=== PATIENT | male | born 1995 | race Caucasian/White ===

== ENCOUNTER 2021-01-05 06:18 | Day surgery (SDC) | payer BC ==
[~2021-01-05] VITALS: Ht 190.5 cm; Wt 86.2 kg
[~2021-01-05 06:18] MED LIST: LIDOCAINE 1% MDV 20ML VIAL SQ PRN
--- OUTSIDE RECORDS SUMMARY | 2021-01-05 06:25 | CCD ---
Author Author [facility] Organization [facility] Address Unknown Phone Unavailable Care Team Providers Care Marketing Operations Analyst Name Role Phone Vivian Smith MD Unavailable Unavailable Luis, Vivian Heaton MD Unavailable Unavailable Vivian Smith MD Unavailable Unavailable Luis, Vivian Heaton MD Unavailable Unavailable Vivian Smith MD Unavailable Unavailable Luis, Vivian Heaton MD Unavailable Unavailable Luis, Vivian Heaton MD Unavailable Unavailable Luis, Vivian Heaton MD Unavailable Unavailable Luis, Vivian Heaton MD Unavailable Unavailable Luis, Vivian Heaton MD Unavailable Unavailable Vivian Smith MD Unavailable Unavailable Luis, Vivian Heaton MD Unavailable Unavailable Luis, Vivian Heaton MD Unavailable Unavailable Vivian Smith MD Unavailable Unavailable Vivian Smith MD Unavailable Unavailable Vivian Smith MD Unavailable Unavailable NOSTROM, HAILEE ANIMAL DAYCARE PROVIDER Unavailable Unavailable NOSTROM, HAILEE ANIMAL DAYCARE PROVIDER Unavailable Unavailable NOSTROM, HAILEE ANIMAL DAYCARE PROVIDER Unavailable Unavailable NOSTROM, HAILEE ANIMAL DAYCARE PROVIDER Unavailable Unavailable NOSTROM, HAILEE ANIMAL DAYCARE PROVIDER Unavailable Unavailable NOSTROM, HAILEE ANIMAL DAYCARE PROVIDER Unavailable Unavailable NOSTROM, HAILEE ANIMAL DAYCARE PROVIDER Unavailable Unavailable NOSTROM, HAILEE ANIMAL DAYCARE PROVIDER Unavailable Unavailable NOSTROM, HAILEE ANIMAL DAYCARE PROVIDER Unavailable Unavailable NOSTROM, HAILEE ANIMAL DAYCARE PROVIDER Unavailable Unavailable NOSTROM, HAILEE ANIMAL DAYCARE PROVIDER Unavailable Unavailable NOSTROM, HAILEE ANIMAL DAYCARE PROVIDER Unavailable Unavailable NOSTROM, HAILEE ANIMAL DAYCARE PROVIDER Unavailable Unavailable HINS, BRIAN PA Unavailable Unavailable HINS, BRIAN PA Unavailable Unavailable HINS, BRIAN PA Unavailable Unavailable HINS, BRIAN PA Unavailable Unavailable HINS, BRIAN PA Unavailable Unavailable HINS, BRIAN PA Unavailable Unavailable HINS, BRIAN PA Unavailable Unavailable Gokey, Nupur DIRECTOR OF DIRECT MARKETING Unavailable Unavailable Gokey, Nupur DIRECTOR OF DIRECT MARKETING Unavailable Unavailable Gokey, Nupur DIRECTOR OF DIRECT MARKETING Unavailable Unavailable Gokey, Nupur DIRECTOR OF DIRECT MARKETING Unavailable Unavailable Gokey, Nupur DIRECTOR OF DIRECT MARKETING Unavailable Unavailable Gokey, Nupur DIRECTOR OF DIRECT MARKETING Unavailable Unavailable Gokey, Nupur DIRECTOR OF DIRECT MARKETING Unavailable Unavailable Gokey, Nupur DIRECTOR OF DIRECT MARKETING Unavailable Unavailable Gokey, Nupur DIRECTOR OF DIRECT MARKETING Unavailable Unavailable Gokey, Nupur DIRECTOR OF DIRECT MARKETING Unavailable Unavailable Gokey, Nupur DIRECTOR OF DIRECT MARKETING Unavailable Unavailable Gokey, Nupur DIRECTOR OF DIRECT MARKETING Unavailable Unavailable Gokey, Nupur DIRECTOR OF DIRECT MARKETING Unavailable Unavailable Gokey, Nupur DIRECTOR OF DIRECT MARKETING Unavailable Unavailable Gokey, Nupur DIRECTOR OF DIRECT MARKETING Unavailable Unavailable Gokey, Nupur DIRECTOR OF DIRECT MARKETING Unavailable Unavailable Gokey, Nupur DIRECTOR OF DIRECT MARKETING Unavailable Unavailable Gokey, Nupur DIRECTOR OF DIRECT MARKETING Unavailable Unavailable Gokey, Nupur DIRECTOR OF DIRECT MARKETING Unavailable Unavailable Amy Duron MD Unavailable Unavailable Amy Duron MD Unavailable Unavailable Dennis Stratton LMSW Unavailable Unavailable BROUGHAL, C BERNADETTE PA Unavailable Unavailable BROUGHAL, C BERNADETTE PA Unavailable Unavailable BROUGHAL, C BERNADETTE PA Unavailable Unavailable BROUGHAL, C BERNADETTE PA Unavailable Unavailable BROUGHAL, C BERNADETTE PA Unavailable Unavailable BROUGHAL, C BERNADETTE PA Unavailable Unavailable CATHY WATT MD Unavailable Unavailable CATHY WATT MD Unavailable Unavailable CATHY WATT MD Unavailable Unavailable CATHY WATT MD Unavailable Unavailable CATHY WATT MD Unavailable Unavailable CATHY WATT MD Unavailable Unavailable CATHY WATT MD Unavailable Unavailable Taya, Paulo DO Unavailable Unavailable [place], Paulo DO Unavailable Unavailable [place], Paulo DO Unavailable Unavailable Taya, Paulo DO Unavailable Unavailable Vivian Smith MD Unavailable Unavailable Nostrom R Hailee MEAT TEAM LEAD Unavailable Unavailable Zafar, C Vivian RPA-C Unavailable Unavailable Zafar, C Vivian RPA-C Unavailable Unavailable Zafar, C Vivian RPA-C Unavailable Unavailable Zafar, C Vivian RPA-C Unavailable Unavailable Zafar, C Vivian RPA-C Unavailable Unavailable Zafar, C Vivian RPA-C Unavailable Unavailable Zafar, C Vivian RPA-C Unavailable Unavailable Zafar, C Vivian RPA-C Unavailable Unavailable Zafar, C Vivian RPA-C Unavailable Unavailable Zafar, C Vivian RPA-C Unavailable Unavailable Zafar, C Vivian RPA-C Unavailable Unavailable Zafar, C Viivan RPA-C Unavailable Unavailable Zafar, C Vivian RPA-C Unavailable Unavailable Zafar, C Vivian RPA-C Unavailable Unavailable Zafar, C Vivian RPA-C Unavailable Unavailable Zafar, C Vivian RPA-C Unavailable Unavailable Zafar, C Vivian RPA-C Unavailable Unavailable Zafar, C Vivian RPA-C Unavailable Unavailable Zafar, C Vivian RPA-C Unavailable Unavailable Zafar, C Vivian RPA-C Unavailable Unavailable Zafar, C Vivian RPA-C Unavailable Unavailable Zafar, C Vivian RPA-C Unavailable Unavailable Zafar, C Vivian RPA-C Unavailable Unavailable Zafar, C Vivian RPA-C Unavailable Unavailable Re-disclosure Warning The records that you are about to access may contain information from federally-assisted alcohol or drug abuse programs. If such information is present, then the following federally mandated warning applies: This information has been disclosed to you from records protected by federal confidentiality rules (42 CFR part 2). The federal rules prohibit you from making any further disclosure of this information unless further disclosure is expressly permitted by the written consent of the person to whom it pertains or as otherwise permitted by 42 CFR part 2. A general authorization for the release of medical or other information is NOT sufficient for this purpose. The Federal rules restrict any use of the information to criminally investigate or prosecute any alcohol or drug abuse patient.The records that you are about to access may contain highly sensitive health information, the redisclosure of which is protected by Article 27-F of the [facility] Public Health law. If you continue you may have access to information: Regarding HIV / AIDS; Provided by facilities licensed or operated by the [facility] Office of Mental Health; or Provided by the [facility] Office for People With Developmental Disabilities. If such information is present, then the following [facility] mandated warning applies: This information has been disclosed to you from confidential records which are protected by state law. State law prohibits you from making any further disclosure of this information without the specific written consent of the person to whom it pertains, or as otherwise permitted by law. Any unauthorized further disclosure in violation of state law may result in a fine or retirement sentence or both. A general authorization for the release of medical or other information is NOT sufficient authorization for further disc losure. Encounters Encounter Providers Location Date Indications Data Source(s ) Outpatient Attender: Sudarshan Smith MDAttender: Sudarshan Smith MD CPSCAORT-LABLAW 01/01/2021 12:25:00 PM EST - 01/01/2021 12:26:00 PM [facility] N44.00 [facility] N44.00 Patient discharged. Outpatient Attender: BERNADETTE BENITEZ CPSCAORT-LABCOVEJN 0 12/31/2020 09:42:00 AM EST - 12/31/2020 09:43:00 AM EST [facility] Patient discharged. Outpatient Attender: BRAIN BOLIVARCAORT-CPSLAUCC 05/2021 05:23:00 PM EST - 12/21/2020 05:24:00 PM EST [facility] Patient discharged. [place] [address] [facility] [address] 12/04/2020 12:00:00 AM EST eCW1 ([facility]) Outpatient [address] [facility] [address] 11/27/2020 12:00:00 AM EST eCW1 ([facility]) Outpatient Attender: Nupur AUGUSTINE CPSCAORT-IMAPD 2019 12:53:00 PM EST - 10/15/2020 12:54:00 PM EST N50.89-TESTICULAR MASS & SWELLING [facility] N50.89-TESTICULAR MASS & SWELLING Patient discharged. Outpatient Attender: BRIAN BENITEZ CPSCAORT-CPSLAUCC 09/14 09:01:00 AM EST - 09/27/2020 09:02:00 AM EST [facility] Patient discharged. Outpatient Attender: TOMAS Stratton CPSCAORT-CHEPDREH 01:00:00 PM EDT - 09/04/2020 01:01:00 PM EDT [facility] PSD Patient discharged. Outpatient Attender: TOMAS Stratton CPSCAORT-CHEPDREH 06/2020 01:00:00 PM EDT - 08/21/2020 01:01:00 PM EDT [facility] PSD Patient discharged. Preadmit Attender: Vivian BYNUM CPSCAORT-CHEPDREH 08/14/2020 02:00:00 PM EDT [facility] MAR Outpatient Attender: TOMAS Stratton CPSCAORT-CHEPDREH 01:00:00 PM EDT - 08/07/2020 01:01:00 PM EDT [facility] PSD Patient discharged. Outpatient Attender: TOMAS Stratton CPSCAORT-CHEPDREH 10:00:00 AM EDT - 07/30/2020 10:01:00 AM EDT [facility] PSD Patient discharged. Outpatient Attender: TOMAS Stratton [facility] 08/2020 10:39:00 AM EDT - 07/24/2020 10:40:00 AM EDT [facility] PSD Patient discharged. Emergency Attender: Paulo Bain DO [facility] 020 04:37:00 AM EDT - 06/26/2020 07:15:00 AM EDT CHEST PAIN,SOB,FEVER [facility] CHEST PAIN,SOB,FEVER Patient discharged. Emergency Attender: Kristie Duron MDAttender: CATHY Paez [facility] 06/24/2020 08:07:00 PM EDT - 06/24/2020 11:30:00 PM EDT FEVER, SORE THROAT, HEADACHE, VOMITING, [facility] FEVER, SORE THROAT, HEADACHE, VOMITING, Patient discharged. Emergency Attender: Hailee Wilson RN PAttender: HAILEE WILSON NPAttender: Paulo Bain DO [facility] 06/22/2020 12:05:00 PM EDT - 06/22/2020 01:16:00 PM EDT FEVER, SORE THROAT [facility] FEVER, SORE THROAT Patient discharged. Medications Medication Brand Name Start Date Product Form Dose Route Admi nistrative Instructions Pharmacy Instructions Status Indications Reaction Description Data Source(s) 300 mg 09/27/2020 12:00:00 AM EST capsule 15 TAKE ONE CAPSULE BY MOUTH THREE TIMES A DAY FOR 5 DAYS TAKE ONE CAPSULE BY MOUTH THREE TIMES A DAY FOR 5 DAYS SOLD: 09/27/2020 [facility] 20 mg 09/27/2020 12:00:00 AM EST tablet 10 TAKE ONE TABLET BY MOUTH TWICE A DAY FOR 5 DAYS TAKE ONE TABLET BY MOUTH TWICE A DAY FOR 5 DAYS SOLD: 2019 [facility] doxycycline hyclate 100 MG Oral Tablet DOXYCYCLINE HYCLATE 0 06/25/2020 12:00:00 AM EDT tablet 28 TAKE ONE TABLET BY MOUTH TRACE RY 12 HOURS FOR 14 DAYS TAKE ONE TABLET BY MOUTH EVERY 12 HOURS FOR 14 DAYS SOLD: 06/25/2020 [facility] Insurance Providers Payer name Policy type / Coverage type Policy ID Covered libertarian ID Covered libertarian's relationship to cabezas Policy Cabezas Plan Information [employer] CARTERCA CATRACHON PPO 302/307 [id number] SELF PAY night time babysitter employed [employer] [id number] night time babysitter employed [id number] [employer] [facility] [employer] [id number] night time babysitter employed [id number] [employer] [facility] [id number] night time babysitter employed [id number] [facility] [employer] [id number] Problems, Conditions, and Diagnoses Code Display Name Description Problem Type Effective Dates Data Source(s) B37.9 Candidiasis, unspecified CANDIDIASIS, UNSPECIFIED Diag nosis 12/21/2020 05:23:00 PM [facility] N50.3 Cyst of epididymis CYST OF EPIDIDYMIS Diagnosis 12/2019 12:53:00 PM [facility] M54.5 Low back pain LOW BACK PAIN Diagnosis 09/27/2020 09:01:00 AM [facility] Z91.030 Bee allergy status BEE ALLERGY STATUS Diagnosis 04:37:00 AM [facility] Z79.899 Other group home (current) drug therapy O THER SQL DATA ARCHITECT (CURRENT) DRUG THERAPY Diagnosis 06/26/2020 04:37:00 AM [facility] F17.210 Nicotine dependence, cigarettes, uncompl icated NICOTINE DEPENDENCE, CIGARETTES, UNCOMPLICATED Diagnosis 06/26/2020 04:37:00 AM [facility] J18.8 Other pneumonia, unspecified organism OT HER PNEUMONIA, UNSPECIFIED ORGANISM Diagnosis 06/26/2020 04:37:00 AM [facility] A69.20 Lyme disease, unspecified LYME DISEASE, UNSPECIFIED Di agnosis 06/24/2020 08:07:00 PM [facility] R50.9 Fever, unspecified FEVER, UNSPECIFIED Diagnosis 09/2020 08:07:00 PM [facility] J02.9 Acute pharyngitis, unspecified ACUTE PHARYNGITIS, UNSP ECIFIED Diagnosis 06/22/2020 12:05:00 PM [facility] Surgeries/Procedures Procedure Description Date Indications Data Source(s) Hospital outpatient clinic visit for assessment and ma nagement of a patient Hospital Outpatient Clinic Visit 12/21/2020 12:00:00 AM [facility] OFFICE OUTPATIENT VISIT 10 MINUTES OFFICE/OUTPATIENT VISIT E ST 12/21/2020 12:00:00 AM [facility] ULTRASOUND SCROTUM & CONTENTS US EXAM SCROTUM 10/15/2020 12:00:00 A M [facility] PRESSURIZED/NONPRESSURIZED INHALATION TREATMENT AIRWAY INHAL ATION TREATMENT 06/26/2020 12:00:00 AM [facility] CT THORAX W/CONTRAST MATERIAL CT THORAX W/DYE 06/26/2020 12:00:00 A M [facility] Low osmolar contrast material, 300-399 mg/ml iodine co ncentration, per ml Locm 300-399mg/ml iodine,1ml Long 06/26/2020 12:00:00 AM [facility] [address] X-RAY EXAM CHEST 1 VIEW 06/26/2020 12:00:00 AM [facility] ECG ROUTINE ECG W/LEAST 12 LDS TRCG ONLY W/O I&R ELECTROCARD IOGRAM TRACING 06/26/2020 12:00:00 AM [facility] IADNA MYCOPLSM PNEUMONIAE AMPLIFIED PROBE TQ M.PNEUMON DNA A MP PROBE 06/26/2020 12:00:00 AM [facility] IADNA CHLAMYDIA PNEUMONIAE AMPLIFIED PROBE TQ CHYLMD PNEUM D NA AMP PROBE 06/26/2020 12:00:00 AM [facility] IADNA NOS AMPLIFIED PROBE TQ EACH ORGANISM DETECT AGENT NOS DNA AMP 06/26/2020 12:00:00 AM [facility] [address]34 RESP VIRUS 12-25 TARGETS 06/26/2020 12:00:00 AM [facility] IAADIADOO NOT OTHERWISE SPECIFIED AGENT NOS ASSAY W/OPTIC 12:00:00 AM [facility] IAADI LEGIONELLA PNEUMOPHILA LEGION PNEUMOPHILIA AG IF 06/26 12:00:00 AM [facility] CULTURE BACTERIAL BLOOD AEROBIC W/ID ISOLATES BLOOD CULTURE FOR BACTERIA 06/26/2020 12:00:00 AM [facility] PROCALCITONIN (PCT) PROCALCITONIN (PCT) 06/26/2020 12:00:00 AM [facility] THROMBOPLASTIN TIME PARTIAL PLASMA/WHOLE BLOOD THROMBOPLASTI N TIME PARTIAL 06/26/2020 12:00:00 AM [facility] PROTHROMBIN TIME PROTHROMBIN TIME 06/26/2020 12:00:00 AM [facility] BLOOD COUNT SMEAR MCRSCP W/MNL DIFRNTL WBC COUNT BL SMEAR W/ DIFF WBC COUNT 06/26/2020 12:00:00 AM [facility] BLOOD COUNT COMPLETE AUTOMATED COMPLETE CBC AUTOMATED 2019 12:00:00 AM [facility] LACTATE DEHYDROGENASE LDH LACTATE (LD) (LDH) ENZYME 06/26/2020 1 2:00:00 AM [facility] FERRITIN ASSAY OF FERRITIN 06/26/2020 12:00:00 AM [facility] LACTATE ASSAY OF LACTIC ACID 06/26/2020 12:00:00 AM [facility] TROPONIN QUANTITATIVE ASSAY OF TROPONIN QUANT 06/26/2020 12:00:00 A M [facility] C-REACTIVE PROTEIN C-REACTIVE PROTEIN 06/26/2020 12:00:00 AM [facility] LIPASE ASSAY OF LIPASE 06/26/2020 12:00:00 AM [facility] COMPREHENSIVE METABOLIC PANEL COMPREHEN METABOLIC PANEL 06/14 12:00:00 AM [facility] FIBRIN DGRADJ PRODUCTS D-DIMER QUANTITATIVE FIBRIN DEGRADATI ON QUANT 06/26/2020 12:00:00 AM [facility] Non-covered item or service NON-COVERED ITEM OR SERVICE 06/14 12:00:00 AM [facility] Injection, ketorolac tromethamine, per 15 mg 0 12:00:00 AM [facility] COLLECTION VENOUS BLOOD VENIPUNCTURE ROUTINE VENIPUNCTURE 12:00:00 AM [facility] THER PROPH/DX NJX IV PUSH SINGLE/1ST SBST/DRUG THER/PROPH/DI AG INJ IV PUSH 06/26/2020 12:00:00 AM [facility] EMERGENCY DEPT VISIT HIGH SEVERITY&THREAT FUNCJ EMERGENCY DE PT VISIT 06/26/2020 12:00:00 AM [facility] ANTIBODY BORRELIA BURGDORFERI CONFIRMATORY TST LYME DISEASE ANTIBODY 06/24/2020 12:00:00 AM EDT [facility] ANTIBODY EHRLICHIA EHRLICHIA ANTIBODY 06/24/2020 12:00:00 AM EDT [facility] ANTIBODY PROTOZOA JORDAN PROTOZOA ANTIBODY NOS 06/24[facility] BORRELIA BURGDORFERI LYME DISEASE LYME DISEASE ANTI BODY 06/24/2020 [facility]ET[facility]TIBODIES SCREEN HETEROPHILE ANTIBODY SCREEN [facility] INFUSION HYDRATION EACH ADDITIONAL HOUR HYDRATE IV INFUSI ON ADD-ON 06/24/2020 [facility] HIGH/URGENT SEVERITY EMERGENCY DE PT VISIT 06/24/2020 12:00:00 AM [facility] U0003 SARS-CoV-2 detection by nucleic acid 06/22/2020 12:00: 00 AM [facility] IAAD EIA STREPTOCOCCUS GROUP A STREP A AG IA 06/22/2020 [facility] MODERATE SEVERITY EMERGENCY DEPT VISIT 06/22/2020 12:00:00 AM [facility] Results ID Date Data Source [id number] 01/03/2021 09:08:00 AM [facility] Name Value Range Interpretation Code Description Data Enma rce(s) Supporting Document(s) Urine Culture [facility] ospital ID Date Data Source [id number] 01/01/2021 05:37:00 PM [facility] Name Value Range Interpretation Code Description Data Enma rce(s) Supporting Document(s) White Blood Count 4.8-10.8 Normal (applies to non-numeri c results) [facility] Red Blood Count 4.35-6.08 Normal (applies to non-numeric results) [facility] Hemoglobin 13.0-17.5 Normal (applies to non-numeric resul ts) [facility] Hematocrit 37.7-51.0 Normal (applies to non-numeric resul ts) [facility] Mean Corpuscular Volume 80-94 Normal (applies to non- numeric results) [facility] Mean Corpuscular Hemoglobin 27.0-33.0 Normal (appli es to non-numeric results) [facility] Mean Corpuscular HGB Conc 32.0-36.0 Normal (applies to no n-numeric results) [facility] Red Cell Distribution Width 11.5-14.5 Normal (appli es to non-numeric results) [facility] Platelet Count 190 X10 3/uL 130-450 Normal (applies to non-numeric results) [facility] Mean Platelet Volume 9.6-13.1 Normal (applies to non-num alex results) [facility] ID Date Data Source [id number] 01/01/2021 04:37:00 PM EST [facility] Name Value Range Interpretation Code Description Data Enma rce(s) Supporting Document(s) Sodium 139 mmol/L 137-145 Normal (applies to non-numeric resul ts) [facility] Potassium 3.5-5.1 Normal (applies to non-numeric resul ts) [facility] Chloride 105 mmol/L 98-112 Normal (applies to non-numeric resul ts) [facility] Carbon Dioxide CO2 22.0-33.0 Normal (applies to non-numer ic results) [facility] Anion Gap 4.0-11.0 Normal (applies to non-numeric resul ts) [facility] BUN 10 mg/dL 9-20 Normal (applies to non-numeric resul ts) [facility] Creatinine 0.80-1.50 Normal (applies to non-numeric resul ts) [facility] GFR >60 Normal (applies to non-numeric results) [facility] Result based on MDRD formula. Glucose Level 82 mg/dL 74-99 Normal (applies to non-numeric re sults) [facility] The reference range is only applicable w hen fasting. Calcium-Uncorrected 8.4-10.2 Normal (applies to non-nume eloise results) [facility] Corrected Calcium 8.4-10.2 Normal (applies to non-numeri c results) [facility] ID Date Data Source [id number] 12/31/2020 08:00:00 AM EST [facility] Name Value Range Interpretation Code Description Data Enma rce(s) Supporting Document(s) Respiratory specimen severe acute respir atory syndrome coronavirus 2 (SARS-CoV-2) RNA Negative (qualifier value) [facility] This lab was ordered by [facility] Lon lockett and reported by [facility]. ID Date Data Source [id number] 01/01/2021 07:52:00 AM [facility] THIS IS A [facility] REPORTABLE COMMUNICABLE DISEASE. Testing was performed using the [employer] COVID-19 MDx Assay. This test has been authorized by FDA under an (Emergency Use Authorization) EUA for use by authorized laboratories for individuals who are suspected of COVID-19 by their healthcare provider. This test is only authorized for the duration of the declaration that circumstances exist justifying the authorization of emergency use of in vitro diagnostic tests for detection and/or diagnosis of SARS-CoV-2. Methodology: Endpoint RT-PCR. Fact sheets for this EUA assay can be found at the following links: Providers: https://www.fda.gov/media/300270/download Patients : https://www.fda.gov/media/746518/download THIS IS A [facility] REPORTABLE COMMUNICABLE DISEASE Negative results do not preclude SARS-CoV-2 infection and should not be used as the sole basis for patient management decisions. Negative results must be combined with clinical observations,patient history, and epidemiological information. Name Value Range Interpretation Code Description Data Enma rce(s) Supporting Document(s) ID Date Data Source [id number] 10/16/2020 06:58:00 AM [facility] Name: RICHARD HARVEY Edward : 1995 Age/Sex: 25M Ordering Provider: DAVIDE Devries Med Rec #: [id number] Reg Status: [facility] REF Room #: Date of Service: 10/15/20 Report Number: [id number] cc:DAVIDE Devries Send Report To: [id number] US/US Scrotum Ultrasound Reason for exam: TESTICULAR MASS, TESTICULAR SWELLING FINDINGS: Right testicle measures 4.4 x 2.0 x 3.2 cm. Left testicle measures 4.3 x 1.8 x 3.0 cm. Right epididymis measures 1.1 x 0.8 x 1.4 cm. Left epididymis measures 1.2 x 1.2 x 1.6 cm. There is a 6 mm cyst in the right epididymis and a 1 cm in the left epididymis. No evidence of a varicocele is identified. No evidence of torsion is noted. IMPRESSION: Epididymal cyst. Examination is otherwise unremarkable. REPORT DICTATED BY THOM ALVARADO, REVIEWED AND SIGNED BY DR. CHAU. REPORT SIGNATURE ON LAUREN E Reported By: Thom Chau MD <Electronically signed by Vielka Chau MD> 10/16/20 0921 Dictation Date/Time: 10/15/20 1425 Transcribed Date/Time: 10/16/20 0658 Transition Lead: TEJ Name Value Range Interpretation Code Description Data Enma rce(s) Supporting Document(s) ID Date Data Source [id number] 06/24/2020 08:07:00 PM EDT [facility] Name: RICHARD HARVEY [facility] Rec #: [id number] : 1995 Age/Sex: 24M Date of Service: 06/24/20 PHYSICIAN CHART Physician Documentation [facility] Name: Richard Harvey Age: 24 yrs Sex: Male : 1995 Arrival Date: 06/24/2020 Time: 20:07 Bed 11 Private MD: Mica Ayala I ([place]) ED Physician Kristie Duron HPI: 06/24 20:51 This 24 yrs old Male presents to ER via Walk-In jtv with complaints of Fever, Sore Throat, Headache, Vomiting. 20:51 Richard is a 24-year-old male, who works on a farm, who jtv comes in on day 5 of fever, myalgias, sore throat, intermittent posterior headache, and intermittent vomiting. He was seen several days ago and at that time had a negative COVID test. He has had no known COVID contacts. He has had no exposures on the farm that he knows about. He has 2 dogs, they are well, and no other pets. He has had multiple tics in the past, but none recently that he recalls. All of his symptoms started on day 1 with mostly a sore throat, but his fevers have persisted, and seem to be worse in the evening and at night. He does have night sweats. No cough. He denies any significant abdominal pain, but at times has left upper quadrant pain. He can tolerate p.o., but then several hours later will have some vomiting. He is had looser stools than normal, but no diarrhea, and no blood in his stool. He denies any urinary complaints. He is extremely tired. . He had a negative rapid strep test a few days ago.. Historical: - Allergies: Bees; - Home Meds: 1. None - PMHx: Lyme Dx; PNEUMONIA; - PSHx: knee bo rgery; - Med Reconciliation:: Green Alert: The patient's med list is complete to the best of the nurse's/provider's knowledge. Medications reviewed, completed by nurse verbally from patient/family. - Immunization history: Flu vaccine is not up to date. - Advance directive: There is no existing advanced directive. Information offered. - Family History:: mother is healthy, Father is healthy. - Hospitalizations: : Patient was only seen in the emergency department, as above. - Social History: Smoking status (Tobacco): Patient states is a heavy tobacco smoker (>10 cigarettes a day). Preferred Language: Qatari. - The history of the events were obtained from: the patient. significant other. ROS: 20:53 Constitutional: See HPI. ENT: See HPI. ENT: Negative for jtv difficulty handling secretions, ear pain. Neck: Negative for stiffness, swelling. Respiratory: Negative for shortness of breath, See HPI. Abdomen/GI: See HPI. Skin: Negative for pallor, rash. Neuro: See HPI. All other systems are negative. Exam: 20:53 Head/Face: Normocephalic, atraumatic. jtv 20:53 Constitutional: The patient appears to have no acute distress, appears afebrile, appears alert, appears to be awake, is not diaphoretic, does not appear to be toxic, well hydrated, appears well nourished. 20:53 ENT: TM's: are normal, Mouth: is normal, Posterior pharynx: is normal, no erythema, no exudate. 20:53 Neck: External neck: is normal, ROM/movement: is normal, is supple, no range of motions limitations, no meningismus, no nuchal rigidity, Lymph nodes: lymphadenopathy is appreciated, posterior cervical nodes, single node on the right. 20:53 Cardiovascular: Rate: normal, Rhythm: regular, Pulses: Pulses are 2+ in right radial artery and right dorsalis pedis artery. Edema: is not appreciated. 20:53 Respiratory: 20:53 Respiratory: the patient does not display signs of respiratory distress, Respirations: normal, no retractions, no tachypnea, unable to auscultate at this time due to PAPR use. 20:53 Abdomen/GI: Inspection: abdomen appears normal, Bowel sounds: normal, Palpation: abdomen is soft and non-tender, involuntary guarding, is not appreciated, rebound tenderness, is not appreciated. 20:53 Musculoskeletal/extremity: no joint swellings. 20:53 Skin: Appearance: Color: normal in color, Temperature: warm, no rash present. 20:53 Neuro: Orientation: is normal, Mentation: is normal, Memory: is normal, Motor: is normal, Gait: is steady. 20:53 Psych: Behavior/mood is pleasant, cooperative, Affect is calm. Vital Signs: 20:12 BP 123 / 80; Pulse 100; Resp 20; Temp 99.8(TE); Pulse Ox rc5 95% on R/A; Weight 78.47 kg (R); 20:13 Temp 102.9(O); rc5 21:53 BP 118 / 78; Pulse 82; Resp 18; Temp 98.4(TE); Pulse Ox 99% jb7 ; 23:33 BP 123 / 79; Pulse 88; Resp 16; Pulse Ox 99% ; jb7 Procedures: 20:50 Peripheral line: by aseptic technique a peripheral line was jtv placed in the right antecubital vein. MDM: 20:48 Patient medically screened. jtv 21:43 Data reviewed: vital signs, nurses notes, lab test jtv result(s). ED course: Biofire is negative, and had another negative test in the last few days so will remove him from airborne precautions. Lyme pending, tick panel is a sendout. LFTs and platelets are normal and monospot is negative. He is well-appearing at this time. . 23:19 ED course: Richard is a 24-year-old male, with day 5 of jtv fever, so re throat, intermittent headaches and intermittent vomiting. He was seen here several days ago and had a negative cover test and negative rapid strep. Since then, he has been able to tolerate p.o. at home, but then has intermittent vomiting throughout the day. He does get some relief of his fever with using Tylenol and/or ibuprofen. He reported headache, but no neck stiffness, and on exam, he is extremely well-appearing with no meningismus signs. He has no focal findings, abdomen is soft and benign, no rashes, throat was unremarkable, and he has no pulmonary symptoms. His O2 sat has been 99% on room air. Here, he has no leukocytosis, his CRP is elevated at approximately 100, pro- [place] is negative, LFTs are normal and platelets are normal. I did send a tickborne panel, but this will take several days to result. In the meantime, we will send him home with supportive care. His Monospot was also negative. I did do a repeat COVID test which was negative. I discussed his return precautions with him, and that we will call him for any positive serology on his tickborne panel. He understands these return precautions and all questions answered.. 23:22 ED course: Lyme IgM has come back presumptive positive. jtv Reflex Western blot to follow. Will start on doxycycline.. 06/24 20:24 Order name: Respiratory Panel w/COVID-19; Complete Time: EDMS 21:48 06/24 21:48 Interpretation: Within normal limits: RP Int Control jtv Passed; Adenovirus Not Detected; Coronavirus 229 Not Detected; CoronavirusHKU1 Not Detected; BiouadgtuuyAY54 Not Detected; ZcscarvenonGV58 Not Detected; SARS-CoV-2 Not Detected; HumanMetapneumo Not Detected; Rhino/Entero Not Detected; Influenza A Not Detected; Influenza B Not Detected; Parainfl Virus1 Not Detected; Parainfl Virus2 Not Detected; Parainfl Virus3 Not Detected; Parainfl Virus4 Not Detected; RSV Not Detected; B Parapertussis Not Detected; B Pertussis Not Detected; C Pneumoniae Not Detected; M Pneumoniae Not Detected. 06/24 20:48 Order name: COMMET; Complete Time: 21:40 [facility] 06/24 21:40 Interpretation: NA 139; K 3.8; CL 106; CO2 30.0; GAP 3.0; jtv BUN 13; CREAT 0.95; Glom Filtration > 90; GLU 115; CA 8.8; Corrected CA 9.3; T Bili 0.2; SGOT(AST) 28; SGPT(ALT) 37; ALK PHOS 83; TP 7.8; ALB 3.4. 06/24 20:48 Order name: C-Reactive Protein,Wide Range; Complete Time: t 21:40 06/24 21:40 Interpretation: Abnormal: CRP-wr 103.00. [facility] 06/24 20:48 Order name: Blood Culture - Venous [facility] 06/24 20:49 Order name: Monospot; Complete Time: 23:23 [facility] 06/24 21:40 Interpretation: Within normal limits: Monotest Negative. [facility] 06/24 20:49 Order name: Tick Disease Ab Panel (ref) [facility] 06/24 20:49 Order name: Lyme IgG/IgM Ab profile; Complete Time: 23:22 [facility] 06/24 23:22 Interpretation: Abnormal: Lyme IgM Ab Presumptive Positive. [facility] 06/24 21:20 Order name: Procalcitonin; Complete Time: 22:37 [facility] 06/24 22:37 Interpretation: Within normal limits: Procalcitonin < 0.05. [facility] 06/24 21:54 Order name: CBC with Manual Differential EDMS 06/24 23:20 Order name: Lyme Disease Ab,Immuno,Ser Pnl EDMS 06/24 20:50 Order name: Saline Lock; Complete Time: 20:50 jtv Dispensed Medications: 20:49 Drug: Ondansetron (PF) 4 mg [ondansetron HCl (PF) 4 mg/2 mL jtv injection solution (2 mL)] Route: IVP; Infused Over: 2 mins; Site: right antecubital; 22:01 Follow up: Response: Nausea is decreased; No adverse jb7 reaction 20:50 Drug: NS 0.9% 1000 ml [sodium chloride 0.9 % intravenous jb7 solution] Route: IV; Rate: 999 mL/hr; Site: right antecubital; 22:01 Follow up: IV Status: Completed infusion; IV Intake: 1000ml jb7 23:33 Drug: Doxycycline 100 mg [doxycycline hyclate 100 mg jb7 capsule (1 caps)] Route: PO; 23:33 Follow up: Response: Medication administered at discharge. jb7 Disposition S ummary: 06/24/20 23:22 Discharge Ordered Location: Home/Self Care jtv Condition: Good jtv Diagnosis - Fever jtv - Lyme Disease jtv Followup: jtv - With: Mica Ayala PA ([place]) - When: 2 - 3 days - Reason: Recheck today's complaints, Continuance of care Followup: jtv - With: Emergency Department - When: As needed - Reason: fever above 104, neck stiffness, vomiting and can't keep anything down, rash, any other concerns. Discharge Instructions: - Discharge Summary Sheet jtv - Lyme Disease jtv Forms: - Work release form jtv - Medication Reconciliation jtv Prescriptions: - Doxycycline Hyclate 100 mg Oral Tablet - take 1 tablet by ORAL route every 12 hours for 14 jtv days; 28 tablet; Refills: 0, Product Selection Permitted Signatures: Dispatcher MedHo EDWV Kristie Duron MD MD jtv Ivana Diallo RN RN jb7 Bettie Tineo RN RN rc5 Corrections: (The following items were deleted from the chart) 20:17 20:16 PMHx: HIV test offered - Refused ([id number]); 5 rc5 21:55 20:50 CBC WITH AUTO DIFFERENTIAL+HEME.LAB.CAN ordered. EDMS EDMS 21:55 21:20 CBC WITH AUTO DIFFERENTIAL+HEME.LAB.CAN reviewed. [facility] EDMS 21:55 21:20 WBC 9.2; HGB 15.1; HCT 44.3; PLT 191. jt EDMS Name Value Range Interpretation Code Description Data Enma rce(s) Supporting Document(s) ID Date Data Source [id number] 06/24/2020 08:07:00 PM EDT [facility] Name: RICHARD HARVEY [facility] Rec #: [id number] : 1995 Age/Sex: 24M Date of Service: 06/24/20 NURSE CHART Nurse's Notes [facility] Name: Richard Harvey Age: 24 yrs Sex: Male : 1995 Arrival Date: 06/24/2020 Time: 20:07 Bed 11 Private MD: Mica Ayala I ([place]) Diagnosis: Fever;Lyme Disease Presentation: 06/24 20:11 Method Of Arrival: Walk- In [facility] 20:13 Transition of care: patient was not received from another [facility] setting of care. Presenting complaint: Patient states - he has had fever, body aches, headache, vomiting and sore throat since Tuesday and was seen in ER and was tested for strep and covid and both tests were negative. He is not feeling any better. Have you travelled in the last 30 days? No. Have you had contact with an individual with a confirmed diagnosis of Ebola or COVID-19? No. 20:13 Acuity: Urgent - 3 rc5 Triage Assessment: 20:15 SEPSIS SCREEN: A Confirmed or Suspected Infection is rc5 Unknown, their temperature is <96.8 or >100.9, their heart rate is >90, their RR is not >20, it is unknown if their WBC is <4 or >12, the patient does not have new or unexplained altered mental status. Two or more SIRS or Sepsis criteria is present, provider notified: Kristie Duron MD. Suicide Screening: Have you had thoughts of harming yourself or others? No. The patient appears to have some mild discomfort, The patient is cooperative, The patient reports that he/she has been having chills, for more than 3 days, feeling like he/she has had a fever, for more than 3 days, feeling ill, for more than 3 days. The patient complains of pain in head. The patient states the pain began 3days ago. The quality of the pain is described as aching, The pain is described as continuous. EENT: The patient reports pain when swallowing. Historical: - Allergies: Bees; - Home Meds: 1. None - PMHx: Lyme Dx; PNEUMONIA; - PSHx: knee surgery; - Med Reconciliation:: Green Alert: The patient's med list is com plete to the best of the nurse's/provider's knowledge. Medications reviewed, completed by nurse verbally from patient/family. - Immunization history: Flu vaccine is not up to date. - Advance directive: There is no existing advanced directive. Information offered. - Family History:: mother is healthy, Father is healthy. - Hospitalizations: : Patient was only seen in the emergency department, as above. - Social History: Smoking status (Tobacco): Patient states is a heavy tobacco smoker (>10 cigarettes a day). Preferred Language: Qatari. - The history of the events were obtained from: the patient. si gnificant other. Screenin:17 AUDIT 1. How often do you have a drink containing alcohol? rc5 Never (0 points). Drug Abuse Screening Test: 1 . Have you used drugs other than those required for medical reasons? No (0 points), screen is complete, no risk. Abuse screen: Denies threats or abuse. Denies injuries from another. Nutritional screening: No deficits noted. Patient has no identifiable fall risk (Salazar Scale: 0 points). Assessment: 21:52 The patient appears to have no apparent distress, jb7 comfortable, The patient is behaving appropriately according to age, cooperative. Neuro: Level of Consciousness is awake, alert, Patient is oriented to person, place and time. Respiratory: Airway is patent. Respiratory effort is even, unlabored. Vital Signs: 20:12 BP 123 / 80; Pulse 100; Resp 20; Temp 99.8(TE); Pulse Ox rc5 95% on R/A; Weight 78.47 kg (R); 20:13 Temp 102.9(O); rc5 21:53 BP 118 / 78; Pulse 82; Resp 18; Temp 98.4(TE); Pulse Ox 99% jb7 ; 23:33 BP 123 / 79; Pulse 88; Resp 16; Pulse Ox 99% ; jb7 ED Course: 20:08 Patient arrived in ED. jst 20:11 Mica Ayala PA ([place]) is Private Physician. rc5 20:15 Triage completed. rc5 20:16 Arm band placed on Patient has correct armband on for rc5 positive identification. 20:19 Kristie Duron MD is Attending Physician. jtv 20:20 Ivana Diallo, RN is Primary Nurse. jtv 20:31 A swab for the respiratory panel was collected by Bettie Tineo RN. 20:50 Inserted peripheral IV: 20 gauge in right antecubital area jb7 Inserted by Kristie Duron MD. 20:51 Labs drawn by ED staff. was sent per order to lab. jb7 21:05 First set of blood cultures drawn Second set of blood jb7 cultures drawn by Lab staff. 21:52 Second set of blood cultures drawn by oh. jb7 23:21 Mica Ayala PA ([place]) is Referral Physician. jtv 23:33 Radiology: None performed. jb7 23:33 No procedures ordered. Discontinued IV bleeding controlled, jb7 pressure dressing applied, No redness/swelling at site. Administered Medications: 20:49 Drug: Ondansetron (PF) 4 mg [ondansetron HCl (PF) 4 mg/2 mL jtv injection solution (2 mL)] Route: IVP; Infused Over: 2 mins; Site: right antecubital; 22:01 Follow up: Response: Nausea is decreased; No adverse jb7 reaction 20:50 Drug: NS 0.9% 1000 ml [sodium chloride 0.9 % intravenous jb7 solution] Route: IV; Rate: 999 mL/hr; Site: right antecubital; 22:01 Follow up: IV Status: Completed infusion; IV Intake: 1000ml jb7 23:33 Drug: Doxycycline 100 mg [doxycycline hyclate 100 mg jb7 capsule (1 caps)] Route: PO; 23:33 Follow up: Response: Medication administered at discharge. jb7 Intake: 22:01 IV: 1000ml; Total: 1000ml. jb7 Outcome: 23:22 Discharge ordered by MD. santana 23:33 Patient verbalized understanding of disposition jb7 instructions. Patient has no functional deficits. Patient functions independently, Patient awake and alert. Oriented to person, place and time. 23:33 Patient discharged to home ambulatory. 23:33 Condition: good Condition: stable 23:33 Discharge instructions given to patient, Patient was instructed on discharge instructions, follow up and referral plans, medication usage, safety practices, The patient demonstrated understanding of instructions, medications, Prescriptions given X 1. 23:33 Vitals are Complete in accordance with Emergency Department Policy. 23:35 Patient left the ED. jb7 06/25 09:14 24 hour call back completed with no concerns vocalized. dk2 Addendum: 06/28/2020 08:15 Lab Result Follow-Up: IGM +, Called Pt no answer, mail box tp1 full Lab result reported by: Lab Notified Jose Ramon Mukherjee MD Result was reported at 08:16. 12:45 Lab Result Follow-Up: Pt contacted informed of + IGM, tp1 Informed that he should continue Doxycycline per . Pt felling better. Signatures: Octavio Plummer, RN RN tp1 Kristie Duron MD MD jtv Bond, Jarrett, RN RN jb7 Tatiana Garcia RN RN dk2 Bettie Tineo RN RN rc5 Shruti Garduno Corrections: (The following items were deleted from the chart) 06/24 20:17 20:16 PM Hx: HIV test offered - Refused ([id number]); rc5 rc5 Name Value Range Interpretation Code Description Data Enma rce(s) Supporting Document(s) ID Date Data Source [id number] 06/27/2020 09:31:00 AM EDT [facility] Name Value Range Interpretation Code Description Data Enma rce(s) Supporting Document(s) Respiratory specimen severe acute respir atory syndrome coronavirus 2 (SARS-CoV-2) RNA [facility] This lab was ordered by [facility] and reported by [facility]. ID Date Data Source [id number] 06/26/2020 04:37:00 AM EDT [facility] Name: RICHARD HARVEY [facility] Rec #: [id number] : 1995 Age/Sex: 24M Date of Service: 06/26/20 DISPOSITION SUMMARY Discharge Summary [facility] Name:Richard Harvey Emergency Department Age:24 yrs Sex:Male :1995 Arrival:06/26/2020 04:37 Departure Date06/26/2020 Departure Time07:14 Private MD:Mica Ayala PA ([place]) Outcome: Discharge Location: Home/Self Care Condition: Good Chief Complaint: Chest Pain, Shortness Of Breath, Fever Diagnosis: Other pneumonia, unspecified organism Prescriptions: Follow up: Mica Ayala PA ([place]) Custom Notes: Rest, drink plenty of fluids. Continue to take doxycycline. Continue to try Tylenol or ibuprofen for fever. You can use 2 puffs of the albuterol inhaler every 4 hours as needed for cough or wheezing. Return for worsening pain, trouble breathing, any additional concerns. Please be sure to follow-up with your regular provider for repeat evaluation. Attending Physician: Paulo Bain DO Private MD: Jamie (Gerry)Mica PA Mid Level Provider: Followup Physician: Jamie Mccall)Mica PA Orders: Cbc With Auto Differential, Comprehensive Metabolic Prof., D-Dimer, Lipase, Partial Thromboplastin Time, Prothrombin Time, Troponin I, CRP - Wide Range, Ferritin, LDH, Legionella Urine Antigen Screen, Procalcitonin, S.Pneumo Antigen Screen - Urine, Sputum Culture Profile and Gram Stain, CXR Portable (Chest Pain), Emergency Room EKG Order - Use EKG Work-Up /Quick Select, Cardiology EKG Interpretation - Choose Reason for Test, Iv Saline Lock, Place Patient On Monitor, Collect Sputum Sample for Culture, Lactic Acid, Blood Culture - Venous, Respiratory Panel w/COVID-19, Ventolin, ketorolac, Aspirin, Dexamethasone, CT Chest for PE with contrast (choose symptom), NS 0.9%, CBC with Manual Differential, Collect Urine - Clean Catch, Collect nasal swab Discharge Instruction: Discharge Summary Sheet, How to Use a Metered Dose Inhaler, Community-Acquired Pneumonia, Adult, Medication Reconciliation Name Value Range Interpretation Code Description Data Enma rce(s) Supporting Document(s) ID Date Data Source [id number] 06/26/2020 04:37:00 AM EDT [facility] Name: RICHARD HARVEY [facility] Rec #: [id number] : 1995 Age/Sex: 24M Date of Service: 06/26/20 PHYSICIAN CHART Physician Documentation [facility] Name: Richard Harvey Age: 24 yrs Sex: Male : 1995 Arrival Date: 06/26/2020 Time: 04:37 Bed 10 Private MD: Jamie Mccall)Mica I ED Physician Paulo Bain HPI: 06/26 05:31 This 24 yrs old Male presents to ER via Walk-In rc3 with complaints of Chest Pain, Shortness Of Breath, Fever. 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 He states he still had a fever there is been no headache he woke at 4 AM with chest pain and shortness of breath he is been coughing a little bit. He still had a fever he took some Tylenol and came straight to the emergency department further evaluation. No recent trauma, travel, immobilization. No lower extremity pain or swelling. No rash. No history of near syncope or syncope. He states the pain is worse when he takes a deep breath or moves.. Historical: - Allergies: Bees; - Home Meds: 1. doxycycline hyclate 100 mg Oral cap 1 cap every 12 hours 2. acetaminophen 500 mg Oral cap 2 caps every 6 hours (Last dose: 06/26/2020 04:30) - PMHx: Lyme Dx; PNEUMONIA; - PSHx: knee surgery; - Med Reconciliation:: Green Alert: The patient's med list is complete to the best of the nurse's/provider's knowledge. Medications reviewed, verbally from patient/family. - Immunization history: All immunizations are up to date. - Advance directive: There is no existing advanced directive. Information offered. - Family History:: mother is healthy, Father is healthy. - Social History: Smoking status (Tobacco): Patient states is a light tobacco smoker (<10 cigarettes a day). Preferred Language: Qatari. - The history of the events were obtained from: the patient. ROS: 05:32 Constitutional: Positive for body aches, fever, chills, rc3 fatigue, Negative for chronic illness. Head Negative for Pain. ENT: Negative for difficulty handling secretions, difficulty swallowing, ear pain, hoarseness, nasal discharge, sore throat. Eyes: Negative for acute changes. Neck: Negative for pain with move ment, pain at rest, stiffness. Cardiovascular: Positive for chest pain, Chest wall pain Negative for palpitations, edema, orthopnea, paroxysmal nocturnal dyspnea. Respiratory: Positive for cough, with no reported sputum, shortness of breath, dyspnea on exertion, wheezing. Abdomen/GI: Negative for abdominal pain, nausea, vomiting, diarrhea. 05:33 Back: Negative for pain at rest, pain with movement. : rc3 Negative for urinary symptoms. MS/extremity: Negative for acute changes, injury or acute deformity, decreased range of motion, pain, paresthesias, swelling, tenderness, tingling. Skin: Negative for diaphoresis, rash. Neuro: Negative for acute changes, altered mental status, bowel incontinence, dizziness, gait disturbance, headache, loss of consciousness, numbness, syncope, near syncope, tingling, urinary incontinence, weakness. Exam: 05:34 Constitutional: The patient appears to have no acute rc3 distress, appears alert, appears to be awake, appears comfortable, is not diaphoretic, does not appear to be toxic, appears well developed, is well groomed, well hydrated, appears well nourished. 05:34 Head/face: Normocephalic, atraumatic. 05:34 Eyes: Anicteric, no pallor. 05:34 ENT: External ear(s): are unremarkable, Ear canal(s): are normal, TM's: are normal, Nose: is normal, Mouth: is normal, Posterior pharynx: is normal, Dental exam: normal, Voice: is normal. 05:34 Neck: External neck: is normal, Thyroid: appears normal, Trachea: is midline with no obvious abnormalities, ROM/movement: is normal, Lymph nodes: no appreciated lymphadenopathy. 05:34 Chest/axilla: Inspection: normal, Palpation: is normal. 05:34 Cardiovascular: Rate: normal, Rhythm: regular, Pulses: Pulses are 2+ in right radial artery, right posterior tibial artery, left radial artery and left posterior tibial artery. Heart sounds: normal, Edema: is not appreciated, JVD: is not appreciated. 05:34 Respiratory: the patient does not display signs of respiratory distress, Respirations: normal, Breath sounds: wheezing, that is mild, is heard diffusely. 05:34 Abdomen/GI: Inspection: abdomen appears normal, Bowel sounds: active, No bruit, Palpation: abdomen is soft and non-tender, in all quadrants, involuntary guarding, is not appreciated, voluntary guarding, is not appreciated, rebound tenderness, is not appreciated. 05:34 Back: ROM is normal, normal spinal alignment noted. 05:34 : CVA tenderness, is absent. 05:34 Musculoskeletal/extremity: Extremities: all appear grossly normal, with no appreciated pain with palpation, ROM: intact in all extremities, Circulation is intact in all extremities. Perfusion: the patient is normally perfused throughout, pink, warm, noted to have brisk capillary refill, Calves: are non- tender, have equal circumference. 05:34 Skin: Appearance: Color: normal in color, pink, Temperature: normal temperature, Moisture: normal moisture, petechiae, not noted, ecchymosis, not noted, flushing, not noted, diaphoresis is not appreciated. 05:34 Neuro: Orientation: is normal, Mentation: is normal, Cranial nerves: No facial motor asymmetry, Motor: moves all fours, Distally, equally, without pain or difficulty, Sensation: no obvious gross deficits. Vital Signs: 04:45 BP 134 / 75 LA Supine (auto/reg); Pulse 88 MON; Resp 23 S; jv2 Temp 100.0(O); Pulse Ox 97% on R/A; Weight 80.74 kg; Height 6 ft. 3 in. (190.50 cm); 05:26 BP 130 / 74; Pulse 69; Resp 16; Pulse Ox 98% ; jv2 06:06 BP 122 / 65 LA Supine (auto/reg); Pulse 81 MON; Resp 26 S; jv2 Temp 98.5(O); Pulse Ox 99% on R/A; 07:13 BP 120 / 68; Pulse 77; Resp 22; Temp 98.1; Pulse Ox 99% ; jv2 04:45 Body Mass Index 22.25 (80.74 kg, 190.50 cm) jv2 04:45 Normal Sinus Rhythm jv2 06:06 Normal Sinus Rhythm jv2 MDM: 04:41 Patient medically screened. rc3 04:57 ED course: Portable chest x-ray no pneumothorax scattered rc3 left-sided opacities.. 05:36 ED course: Blood cultures from previous visit negative rc3 confirmatory Lyme testing pending, previous respiratory panel negative. 05:39 ECG: The ECG on this patient demonstrates Other Sinus 3 rhythm, rate 80, left axis, incomplete right bundle branch block, no ST elevations or depressions, no priors available for comparison. 05:39 ED course: Oxygen saturation 98% on room air. rc3 06:03 ED course: No AV block seen on EKG. rc3 06:33 ED course: CTPA chest read: Bilateral patchy nodular rc3 opacities likely due to multifocal pneumonia or septic emboli although neoplasm and other entities could have the same appearance. Follow-up to resolution is advised. Images reviewed by me.. 06:41 ED course: Patient feeling much better. Lungs clear to 3 auscultation all bullock at this time. Reports significant improvement with the albuterol. Suspect a degree of bronchospasm causing his chest pain this morning. We did discuss the multifocal unusual appearance to the pneumonia. Will start with treatment as community-acquired pneumonia with continuation of his doxycycline. I did strongly encourage him to follow-up with his PCP and return precautions were provided. 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 07:01 Data reviewed: vital signs, nurses notes, old medical [facility] records, lab test result(s), EKG, radiologic studies. 06/26 04:46 Order name: Comprehensive Metabolic Prof.; Complete Time: 3 06:06 06/26 06:06 Interpretation: NA 139; K 4.1; CL 106; CO2 28.0; GAP 5.0; rc3 BUN 11; CREAT 0.82; Glom Filtration > 90; GLU 101; CA 8.7; Corrected CA 9.3; T Bili 0.2; SGOT(AST) 38; SGPT(ALT) 55; ALK PHOS 81; TP 7.0; ALB 3.3. 06/26 04:46 Order name: D-Dimer; Complete Time: 05:44 3 06/26 05:44 Interpretation: D-Dimer Quant 1042. 3 06/26 04:46 Order name: Lipase; Complete Time: 06:06 3 06/26 06:07 Interpretation: LIP 71. 3 06/26 04:46 Order name: Partial Thromboplastin Time; Complete Time: rc3 05:44 06/26 05:44 Interpretation: PTT 29.2. 3 06/26 04:46 Order name: Prothrombin Time; Complete Time: 05:44 3 06/26 05:44 Interpretation: PT 12.9; INR 1.12. [facility] 06/26 04:46 Order name: Troponin I; Complete Time: 06:06 3 06/26 06:08 Interpretation: TROP I < 0.045. [facility] 06/26 04:47 Order name: CRP - Wide Range; Complete Time: 06:06 3 06/26 06:07 Interpretation: CRP-wr 71.50; Last 103. [facility] 06/26 04:47 Order name: Ferritin; Complete Time: 06:06 [facility] 06/26 06:08 Interpretation: PAYTON 227. [facility] 06/26 04:47 Order name: LDH; Complete Time: 06:06 [facility] 06/26 06:08 Interpretation: LDH 182. [facility] 06/26 04:47 Order name: Legionella Urine Antigen Screen; Complete Time: rc3 06:29 06/26 06:29 Interpretation: Within normal limits: LEGSCR <p></p> . [facility] 06/26 04:47 Order name: Procalcitonin; Complete Time: 06:06 3 06/26 06:08 Interpretation: Procalcitonin < 0.05. 3 06/26 04:47 Order name: S.P neumo Antigen Screen - Urine; Complete Time: rc3 06:29 06/26 06:29 Interpretation: Within normal limits: SPNEUMO-UR <p></p>. [facility] 06/26 04:47 Order name: Sputum Culture Profile and Gram Stain [facility] 06/26 04:46 Order name: CXR Portable (Chest Pain); Complete Time: 05:44 3 06/26 04:46 Order name: Emergency Room EKG Order - Use EKG Work-Up 3 /Quick Select; Complete Time: 04:56 06/26 04:46 Order name: Cardiology EKG Interpretation - Choose Reason [facility] for Test 06/26 04:46 Order name: Iv Saline Lock; Complete Time: 05:05 [facility] 06/26 04:46 Order name: Place Patient On Monitor; Complete Time: 04:56 [facility] 06/26 04:47 Order name: Lactic Acid; Complete Time: 06:06 3 06/26 06:08 Interpretation: Lactic 1.0. 3 06/26 04:47 Order name: Blood Culture - Venous [facility] 06/26 04:47 Order name: Respiratory Panel w/COVID-19; Complete Time: EDMS 06:29 06/26 06:29 Interpretation: RP Int Control Passed; Adenovirus Not rc3 Detected; Coronavirus 229 Not Detected; CoronavirusHKU1 Not Detected; ObdvanyqxujFJ72 Not Detected; QrzvplunxucUR28 Not Detected; SARS-CoV-2 Not Detected; HumanMetapneumo Not Detected; Rhino/Entero Not Detected; Influenza A Not Detected; Influenza B Not Detected; Parainfl Virus1 Not Detected; Parainfl Virus2 Not Detected; Parainfl Virus3 Not Detected; Parainfl Virus4 Not Detected; RSV Not Detected; B Parapertussis Not Detected; B Pertussis Not Detected; C Pneumoniae Not Detected; M Pneumoniae Not Detected. 06/26 05:45 Order name: CT Chest for PE with contrast (choose symptom) [facility] 06/26 05:55 Order nam e: CBC with Manual Differential; Complete Time: EDMS 06:06 06/26 06:07 Interpretation: WBC 11.7; HGB 14.5; HCT 42.5; PLT 202; Last rc3 white blood cell count 9.2. 06/26 04:47 Order name: Collect Urine - Clean Catch; Complete Time: rc3 05:22 06/26 04:47 Order name: Collect nasal swab; Complete Time: 05:14 rc3 Dispensed Medications: 05:22 Drug: ketorolac 30 mg [ketorolac 30 mg/mL (1 mL) injection jv2 solution (1 mL)] Route: IVP; Site: left antecubital; 06:02 Follow up: Response: No adverse reaction; Pain is decreased jv2 05:22 Drug: Aspirin 162 mg [aspirin 81 mg tablet,delayed release jv2 (2 tabs)] Route: PO; 06:02 Follow up: Response: No adverse reaction jv2 05:22 Drug: Dexamethasone 10 mg [dexamethasone 4 mg tablet (2.5 jv2 tabs)] Route: PO; 06:19 Follow up: Response: No adverse reaction jv2 05:27 Drug: Ventolin Inhaler 6 puffs {Note: MDI with attached jv2 aerochamber.} Route: Inhalation; 06:02 Follow up: Response: No adverse reaction; Pain is jv2 decreased; Shortness of breath improved. 06:02 Drug: NS 0.9% 1000 ml [sodium chloride 0.9 % intravenous jv2 solution] Route: IV; Rate: 999 mL/hr; Site: left antecubital; Disposition Summary: 06/26/20 06:43 Discharge Ordered Location: Home/Self Care rc3 Condition: Good rc3 Diagnosis - Other pneumonia, unspecified organism rc3 Followup: rc3 - With: Mica Ayala PA ([place]) - When: 5 - 6 days - Reason: Recheck today's complaints Followup: rc3 - With: Emergency Department - When: - Reason: Worsening of condition Discharge Instructions: - Discharge Summary Sheet rc3 - How to Use a Metered Dose Inhaler rc3 - Community-Acquired Pneumonia, Adult rc3 Forms: - Medication Reconciliation rc3 Signatures: Dispatcher [employer] EDMS Paulo Bain DO DO rc3 Vikki Blancas RN RN jv2 Corrections: (The following items were deleted from the chart) 05:34 05:33 Neuro: Negative for acute changes, altered mental rc3 status, bowel incontinence, dizziness, gait disturbance, headache, loss of consciousness, numbness, seizure activity, speech changes, syncope, near syncope, tingling, urinary incontinence, weakness, rc3 05:55 04:48 CBC WITH AUTO DIFFERENTIAL+HEME.LAB.CAN ordered. EDMS EDMS 05:55 05:44 CBC WITH AUTO DIFFERENTIAL+HEME.LAB.CAN reviewed. rc3 EDMS 05:55 05:44 WBC 11.7; HGB 14.5; HCT 42.5; PLT 202. rc3 EDMS Name Value Range Interpretation Code Description Data Enma rce(s) Supporting Document(s) ID Date Data Source [id number] 06/26/2020 04:37:00 AM EDT [facility] Name: RICHARD HARVEY [facility] Rec #: [id number] : 1995 Age/Sex: 24M Date of Service: 06/26/20 NURSE CHART Nurse's Notes [facility] Name: Richard Harvey Age: 24 yrs Sex: Male : 1995 Arrival Date: 06/26/2020 Time: 04:37 Bed 10 Private MD: Mica Ayala I ([place]) Diagnosis: Other pneumonia, unspecified organism Presentation: 06/26 04:42 Transition of care: patient was not received from another [facility] setting of care. Presenting complaint: Patient states - that this is his 3rd visit in 5 days for a fever. He now has sudden onset chest pain and shortness of breath, that woke him from sleep at approximately 0420. Have you travelled in the last 30 days? No. Have you had contact with an individual with a confirmed diagnosis of Ebola or COVID-19? No. 04:42 Method Of Arrival: Walk-In [facility] 04:42 Acuity: Urgent - 3 j Triage Assessment: 04:43 SEPSIS SCREEN: A Confirmed or Suspected Infection is jv2 Unknown, SIRS or Sepsis criteria is not present. Suicide Screening: Have you had thoughts of harming yourself or others? No. The patient appears ill, The patient is behaving appropriately according to age, cooperative. Patient states the pain is currently a 8 / 10 The patient reports his/her pain at its worst was 10 out of 10 on a 1-10 pain scale. The patient complains of pain in anterior aspect of left upper chest and left breast. Patient denies any radiating pain. The patient states the pain began suddenly, 0420 hours. The quality of the pain is described as sharp. Cardiovascular: Rhythm is sinus rhythm Chest pain is described as Moderate. Respiratory: Airway is patent. Respiratory effort is even, unlabored, Patient reports pain with respiration since 0420 hours. Historical: - Allergies: Bees; - Home Meds: 1. doxycycline hyclate 100 mg Oral cap 1 cap every 12 hours 2. acetaminophen 500 mg Oral cap 2 caps every 6 hours (Last dose: 06/26/2020 04:30) - PMHx: Lyme Dx; PNEUMONIA; - PSHx: knee surgery; - Med Reconciliation:: Green Alert: The patient's med list is complete to the best of the nurse's/provider's knowledge. Medications reviewed, verbally from patient/family. - Immunization history: All immunizations are up to date. - Advance directive: There is no existing advanced directive. Information offered. - Family History:: mother is healthy, Father is healthy. - Social History: Smoking status (Tobacco): Patient states is a light tobacco smoker (<10 cigarettes a day). Preferred Language: Qatari. - The history of the events were obtained from: the patient. Screenin:47 AUDIT 1. How often do you have a drink containing alcohol? jv2 Never (0 points). Drug Abuse Screening Test: 1. Have you used drugs other than those required for medical reasons? No (0 points), screen is complete, no risk. Abuse screen: Denies threats or abuse. Denies injuries f rom another. Nutritional screening: No deficits noted. Exposure risk/Travel Screening: None identified. Patient has no identifiable fall risk (Salazar Scale: 0 points). Assessment: 05:25 See Triage Assessment. The patient states the pain began jv2 suddenly, at 04:20. The pain is reportedly aggravated by deep breaths. Cardiovascular: Capillary refill < 3 seconds, Heart tones are normal. S1, S2. Respiratory: Breath sounds with wheezes in left posterior upper lobe, right posterior upper lobe, left posterior lower lobe, right posterior middle lobe and right posterior lower lobe. Vital Signs: 04:45 BP 134 / 75 LA Supine (auto/reg); Pulse 88 MON; Resp 23 S; jv2 Temp 100.0(O); Pulse Ox 97% on R/A; Weight 80.74 kg; Height 6 ft. 3 in. (190.50 cm); 05:26 BP 130 / 74; Pulse 69; Resp 16; Pulse Ox 98% ; jv2 06:06 BP 122 / 65 LA Supine (auto/reg); Pulse 81 MON; Resp 26 S; jv2 Temp 98.5(O); Pulse Ox 99% on R/A; 07:13 BP 120 / 68; Pulse 77; Resp 22; Temp 98.1; Pulse Ox 99% ; jv2 04:45 Body Mass Index 22.25 (80.74 kg, 190.50 cm) jv2 04:45 Normal Sinus Rhythm jv2 06:06 Normal Sinus Rhythm jv2 ED Course: 04:38 Patient arrived in ED. jst 04:39 Paulo Bain DO is Attending Physician. rc3 04:41 Vikki Blancas, VENKATESH is Primary Nurse. jv2 04:42 Jamie (Gerry)Mica PA is Private Physician. jv2 04:43 Triage completed. jv2 04:46 Arm band placed on left wrist. Patient placed in exam room jv2 on stretcher Patient has correct armband on for positive identification. Placed in gown. Bed in low position. Call light in reach. 04:48 Patient has correct armband on for positive identification, jv2 Placed in gown, Bed in low position, Call light in reach, Side rails up X 1, family is at the bedside. furnace operator on. Pulse on is on. NIBP on. 04:52 An EKG was obtained and reviewed by Paulo Bain DO. jv2 04:56 CXR Portable (Chest Pain) Sent. jv2 04:56 Cardiology EKG Interpretation - Choose Reason for Test Sent.jv2 04:57 Radiology: a portable X-ray was completed at 04:45. jv2 05:13 Labs drawn by ED staff. was sent per order to lab. First jv2 set of blood cultures drawn by oh A swab for the respiratory panel was collected by Vikki Blancas RN. Inserted saline lock: 18 gauge in left antecubital area and blood collected. 05:13 Second set of blood cultures drawn by me. jv2 05:23 Urine collected. Clean ca tch specimen. jv2 05:47 Critical test result: D-Dimer: 1042. Result Repeated and jb7 Verified to Paulo Bain DO, MD was notified at 05:47. 05:56 Radiology: The patient went to get his/her CT at 05:56. jv2 05:56 CT Chest for PE with contrast (choose symptom) Sent. jv2 05:57 No procedures ordered. jv2 06:06 Radiology: Patient returned from CT at 06:06. jv2 06:42 Mica Ayala PA ([place]) is Referral Physician. rc3 07:13 Discontinued IV lock intact, bleeding controlled, pressure jv2 dressing applied, No redness/swelling at site. Administered Medications: 05:22 Drug: ketorolac 30 mg [ketorolac 30 mg/mL (1 mL) injection jv2 solution (1 mL)] Route: IVP; Site: left antecubital; 06:02 Follow up: Re sponse: No adverse reaction; Pain is decreased jv2 05:22 Drug: Aspirin 162 mg [aspirin 81 mg tablet,delayed release jv2 (2 tabs)] Route: PO; 06:02 Follow up: Response: No adverse reaction jv2 05:22 Drug: Dexamethasone 10 mg [dexamethasone 4 mg tablet (2.5 jv2 tabs)] Route: PO; 06:19 Follow up: Response: No adverse reaction jv2 05:27 Drug: Ventolin Inhaler 6 puffs {Note: MDI with attached jv2 aerochamber.} Route: Inhalation; 06:02 Follow up: Response: No adverse reaction; Pain is jv2 decreased; Shortness of breath improved. 06:02 Drug: NS 0.9% 1000 ml [sodium chloride 0.9 % intravenous jv2 solution] Route: IV; Rate: 999 mL/hr; Site: left antecubital; Outcome: 06:43 Discharge ordered by MD. rc3 07:13 Patient verbalized understanding of disposition jv2 instructions. Patient has no functional deficits. 07:13 Patient discharged Pt was transported via Private Vehicle. 07:13 Condition: good Condition: improved 07:13 Discharge instructions given to patient, Patient was instructed on discharge instructions, follow up and referral plans, medication usage, safety practices, The patient demonstrated understanding of instructions, medications, No prescriptions given. 07:13 Vitals are Complete in accordance with Emergency Department Policy. 07:14 Patient left the ED. jv2 Signatures: Paulo Bain DO DO rc3 Ivana Diallo, RN RN jb7 Vikki Blancas, VENKATESH RN jv2 Shruti Garduno Name Value Range Interpretation Code Description Data Enma rce(s) Supporting Document(s) ID Date Data Source [id number] 06/26/2020 06:29:00 AM EDT [facility] Name: RICHARD HARVEY : 1995 Age/Sex: 24M Ordering Provider: Paulo Bain DO Med Rec #: [id number] Reg Status: REG ER Room #: Date of Service: 06/26/20 Report Number: [id number] cc:DAVIDE Devries; Paulo Bain DO Send Report To: EXAM: CTA Chest with Intravenous Contrast for PE evaluation CLINICAL HISTORY:FEVER, CP, SOB, +DIMER TECHNIQUE: Axial CTA images of the chest with intravenous contrast using a pulmonary embolism protocol. Multiplanar reconstructed images were created and reviewed. CONTRAST:With; ISOVUE was administered without incident. COMPARISON:None provided. FINDINGS: PULMONARY ARTERIES: No evidence of central or segmental pulmonary embolism is seen. AORTA: There is no evidence for aneurysm or dissection of the thoracic aorta. LUNGS:Patchy nodular opacities are noted throughout the left greater than rig htlungs. The largest lesion on the left increased axial dimension and is seen in the superior segment of the left lower lobe on axial image 46 series 4. The largest lesion on the right is seen within the right lower lobe measuring up to 2.2 x 1.3 cm in greatest axial dimension on axial image 47 series 4. The tracheal bronchial tree is unremarkable. PLEURAL SPACES: No evidence of pneumothorax. No pleural effusion. HEART: Normal heart size. No significant pericardial effusion. LYMPH NODES: No lymphadenopathy is evident. BONES: No focal osseous abnormality or acute fracture. UPPER ABDOMEN:There is moderate splenomegaly. MISCELLANEOUS:Mild bilateral gynecomastia is noted. IMPRESSION: Bilateral patchy nodular opacities likely due to multifocal pneumonia or septicemboli although neoplasm and other entities could have the same appearance. Follow up to resolution is advised. Fluoroscopy ti me in seconds: Number of Exposures: Time Portable Image Performed: Contrast Agent in ml: Isovue 300 100 Method of Administration: Intraveneous REPORT SIGNATURE ON FILE Reported By: Maldonado Christianson MD 06/26/20628 Dictation Date/Time: 06/26/20628 Transcribed Date/Time: 06/26/20628 Transition Lead: Name Value Range Interpretation Code Description Data Enma rce(s) Supporting Document(s) ID Date Data Source [id number] [facility]: Immunochromatographic ass ay (ICT) Reference Range: Negative for the presence of S.pneumoniae antigen Note: A negative result can not rule out infection due to S.pneumoniae since the antigen present in the specimen may be below the detection limit of the test. A negative test is presumptive and it is recommended that these results be confirmed by culture.Negative Name Value Range Interpretation Code Description Data Enma rce(s) Supporting Document(s) ID Date Data Source [id number] 06/26/2020 06:19:00 AM [facility] Presumptive negative for L.pneumophila s erogroup 1 antigen in urine, suggesting no recent or current infection. Note: Infection due to Legionella cannot be ruled out since other serogroups and species may cause disease, antigen may not be present in urine in early infection, and the level of antigen present in the urine may be below the detection limit of the test. Methodology: Immunochromatographic assay (ICT) Reference Range: Negative Name Value Range Interpretation Code Description Data Enma rce(s) Supporting Document(s) ID Date Data Source [id number] 07/01/2020 05:24:00 AM [facility] 3 hour post Lactic if elevated? Y Name Value Range Interpretation Code Description Data Enam rce(s) Supporting Document(s) Blood Culture-Venous [facility] ID Date Data Source [id number] 07/01/2020 05:24:00 AM EDT [facility] 3 hour post Lactic if elevated? Y Name Value Range Interpretation Code Description Data Enma rce(s) Supporting Document(s) Blood Culture-Venous [facility] ID Date Data Source [id number] 06/26/2020 06:22:00 AM EDT [facility] Name Value Range Interpretation Code Description Data Enma rce(s) Supporting Document(s) RP Internal Control Passed Normal (applies to non-nume eloise results) [facility] Manual entry verified by Shelia Cobb 06/26/20 0621 Adenovirus Not Detect Normal (applies to non-numeric resul ts) [facility] Coronavirus 229E Not Detect Normal (applies to non-numeric results) [facility] Coronavirus HKU1 Not Detect Normal (applies to non-numeric results) [facility] Coronavirus NL63 Not Detect Normal (applies to non-numeric results) [facility] Coronavirus OC43 Not Detect Normal (applies to non-numeric results) [facility] SARS-CoV-2 Not Detect Normal (applies to non-numeric resul ts) [facility] Negative results do not preclude SARS-Co V-2 infection and should not be used as the sole basis for treatment or other patient management decisions. Negative results must be combined with clinical observations, patient history, and epidemiological information. Testing was performed using the f4samuraie real-time nested multiplexed PCR Respiratory Panel 2.1 This test has not been FDA cleared or approved. This test has been authorized by FDA under an (Emergency Use Authorization) EUA for use by authorized laboratories. This test is only authorized for the duration of the declaration that circumstances exist justifying the authorization of emergency use of in vitro diagnostic tests for detection and/or diagnosis of SARS-CoV-2. Fact sheets for this EUA assay can be found at the following links: General: https://www.cdc.gov/COVID19 Healthcare Professionals: https://www.cdc.gov/coronavirus/2019-nCoV/guidance-hcp.html THIS IS A STATE REPORTABLE COMMUNICABLE DISEASE. Human Metapneumovirus Not Detect Normal (applies to non-nu meric results) [facility] Rhino/Enterovirus Not Detect Normal (applies to non-numeri c results) [facility] Influenza A Not Detect Normal (applies to non-numeric resu lts) [facility] Influenza B Not Detect Normal (applies to non-numeric resu lts) [facility] Parainfluenza Virus 1 Not Detect Normal (applies to non-nu meric results) [facility] Parainfluenza Virus 2 Not Detect Normal (applies to non-nu meric results) [facility] Parainfluenza Virus 3 Not Detect Normal (applies to non-nu meric results) [facility] Parainfluenza Virus 4 Not Detect Normal (applies to non-nu meric results) [facility] Respiratory Syncytial Virus Not Detect Norm al (applies to non-numeric results) [facility] Bordetella Parapertussis Not Detect Normal (applies to non -numeric results) [facility] Bordetella Pertussis Not Detect Normal (applies to non-num alex results) [facility] Chlamydia Pneumoniae Not Detect Normal (applies to non-num alex results) [facility] Mycoplasma Pneumoniae Not Detect Normal (applies to non-nu meric results) [facility] Methodology: Multiplexed PCR ID Date Data Source [id number] 06/26/2020 05:58:00 AM EDT [facility] Name Value Range Interpretation Code Description Data Enma rce(s) Supporting Document(s) Procalcitonin 0.00-0.24 Normal (applies to non-numeric re sults) [facility] 1.Risk of Progression to severe sepsis a nd septic shock: < 0.50 ng/mL Low Risk of severe sepsis and/or septic shock > 2.00 ng/mL High Risk of severe sepsis and/or septic shock 2.Decision on antibiotic discontinuation for suspected or confirmed septic patients: Antibiotic therapy may be discontinued if the current PCT is <0.50 ng/mL or if there is an 80% decrease in PCT. 3.Decision for antibiotic therapy for patients with suspected or confirmed Lower Respiratory Tract Infection (LRTI): >0.25 ng/mL - Antibiotic therapy encouraged 4.Decision on antibiotic discontinuation for patients with suspected or confirmed LRTI: Antibiotic therapy may be discontinued if the current PCT is <0.25 ng/mL or if there is an 80% decrease in PCT. NOTE: Antibiotic therapy should be considered regardless of PCT result if the patient is clinically unstable, is at high risk for adverse outcome, has strong evidence of bacterial pathogen or the clinical context indicates antibiotic therapy is warranted. ID Date Data Source [id number] 06/26/2020 05:55:00 AM EDT [facility] Name Value Range Interpretation Code Description Data Enma rce(s) Supporting Document(s) White Blood Count 4.8-10.8 Above high normal [facility] Red Blood Count 4.35-6.08 Normal (applies to non-numeric results) [facility] Hemoglobin 13.0-17.5 Normal (applies to non-numeric resul ts) [facility] Hematocrit 37.7-51.0 Normal (applies to non-numeric resul ts) [facility] Mean Corpuscular Volume 80-94 Normal (applies to non- numeric results) [facility] Mean Corpuscular Hemoglobin 27.0-33.0 Normal (appli es to non-numeric results) [facility] Mean Corpuscular HGB Conc 32.0-36.0 Normal (applies to no n-numeric results) [facility] Red Cell Distribution Width 11.5-14.5 Normal (appli es to non-numeric results) [facility] Platelet Count 202 X10 3/uL 130-450 Normal (applies to non-numeric results) [facility] Mean Platelet Volume 9.6-13.1 Normal (applies to non-num alex results) [facility] Total Cells Counted 100 0-100 Normal (applies to non-nume eloise results) [facility] Neutrophils % (manual) 47 % 40-75 Normal (applies to non-n umeric results) [facility] Lymphocytes % (manual) 32 % 21-46 Normal (applies to non-n umeric results) [facility] Monocytes % (manual) 5 % 5-12 Normal (applies to non-num alex results) [facility] Eosinophils % (manual) 6 % 1-5 Above high normal [facility] Basophils % (manual) 0 % 0-1 Normal (applies to non-num alex results) [facility] Band Neutrophils% (manual) 1 % 0-5 Normal (applies to n on-numeric results) [facility] Atypical Lymph% (manual) 9 % 0-5 Above high normal [facility] Neutrophils # (Manual) 1.5-8.1 Normal (applies to non-n umeric results) [facility] Lymphocytes # (Manual) 1.0-3.1 Above high normal [facility] Monocytes # (Manual) 0.2-1.3 Normal (applies to non-num alex results) [facility] Eosinophils# (Manual) 0.0-0.5 Above high normal [facility] Basophils # (Manual) 0.0-0.1 Normal (applies to non-num alex results) [facility] Platelet Estimate Adequate Normal (applies to non-numeri c results) [facility] Estimate agrees with automated count Slide Reviewed By Normal (applies to non-numeri c results) [facility] Slide has been reviewed and findings con firmed by a technologist/master technician. ID Date Data Source [id number] 06/26/2020 05:52:00 AM EDT [facility] Name Value Range Interpretation Code Description Data Enma rce(s) Supporting Document(s) Sodium 139 mmol/L 137-145 Normal (applies to non-numeric resul ts) [facility] Potassium 3.5-5.1 Normal (applies to non-numeric resul ts) [facility] Chloride 106 mmol/L 98-112 Normal (applies to non-numeric resul ts) [facility] Carbon Dioxide CO2 22.0-33.0 Normal (applies to non-numer ic results) [facility] Anion Gap 4.0-11.0 Normal (applies to non-numeric resul ts) [facility] BUN 11 mg/dL 9-20 Normal (applies to non-numeric resul ts) [facility] Creatinine 0.80-1.50 Normal (applies to non-numeric resul ts) [facility] GFR >60 Normal (applies to non-numeric results) [facility] Result based on MDRD formula. Glucose Level 101 mg/dL 74-99 Above high normal [facility] The reference range is only applicable w hen fasting. Calcium-Uncorrected 8.4-10.2 Normal (applies to non-nume eloise results) [facility] Corrected Calcium 8.4-10.2 Normal (applies to non-numeri c results) [facility] Bilirubin,Total 0.2-1.3 Normal (applies to non-numeric results) [facility] SGOT(AST) 38 U/L 17-59 Normal (applies to non-numeric resul ts) [facility] SGPT(ALT) 55 U/L 21-72 Normal (applies to non-numeric resul ts) [facility] Alkaline Phosphatase 81 U/L 38-126 Normal (applies to non-num alex results) [facility] can increase Alkaline Phosp le vels up to 2 times the normal adult value. Normal values for children and adolescents are 2 to 3 times the normal adult value. Total Protein 6.3-8.2 Normal (applies to non-numeric re sults) [facility] Albumin 3.5-5.0 Below low normal [facility] ID Date Data Source [id number] 06/26/2020 05:52:00 AM EDT [facility] Name Value Range Interpretation Code Description Data Enma rce(s) Supporting Document(s) Ferritin 227 ng/mL 17.9-464.0 Normal (applies to non-numeric resul ts) [facility] ID Date Data Source [id number] 06/26/2020 05:52:00 AM EDT [facility] Name Value Range Interpretation Code Description Data Enma rce(s) Supporting Document(s) LDH 182 U/L 87-241 Normal (applies to non-numeric resul ts) [facility] ID Date Data Source [id number] 06/26/2020 05:52:00 AM EDT [facility] Name Value Range Interpretation Code Description Data Enma rce(s) Supporting Document(s) Lipase 71 U/L 73-393 Below low normal [facility] ID Date Data Source [id number] 06/26/2020 05:52:00 AM EDT [facility] Name Value Range Interpretation Code Description Data Enma rce(s) Supporting Document(s) C-Reactive Protein,Wide Range <3.00 Above high normal [facility] ID Date Data Source [id number] 06/26/2020 05:50:00 AM EDT [facility] Name Value Range Interpretation Code Description Data Enma rce(s) Supporting Document(s) Troponin I 0.000-0.045 Normal (applies to non-numeric resu lts) [facility] ID Date Data Source [id number] 06/26/2020 05:49:00 AM EDT [facility] 3 hour post Lactic if elevated? Y Name Value Range Interpretation Code Description Data Enma rce(s) Supporting Document(s) Lactic Acid 0.4-2.0 Normal (applies to non-numeric resu lts) [facility] ID Date Data Source [id number] 06/26/2020 05:43:00 AM EDT [facility] Name Value Range Interpretation Code Description Data Enma rce(s) Supporting Document(s) PT 9.4-12.5 Above high normal [facility] INR Normal (applies to non-numeric results) [facility] The use of the INR is restricted to yasir ents on stable oral anticoagulant. Therapeutic Range: 2.0-3.0 High Risk Values: 2.5-3.5 ID Date Data Source [id number] 06/26/2020 05:43:00 AM EDT [facility] Name Value Range Interpretation Code Description Data Enma rce(s) Supporting Document(s) PTT 25.1-36.5 Normal (applies to non-numeric resul ts) [facility] ID Date Data Source [id number] 06/26/2020 05:43:00 AM EDT [facility] Name Value Range Interpretation Code Description Data Enma rce(s) Supporting Document(s) D-Dimer Quant 1042 ng/mLFEU <500 PH [facility] IVANA BOND read back critical informat ion 06/26/20 0542 LAB.[facility] Positive for D-Dimer. DVT/PE or DIC may be present. D-Dimer is an exclusionary test and is used in conjunction with a clinical pretest probability (PTP) assessment model to exclude DVT and PE. Consider further diagnostic studies to confirm diagnosis. ID Date Data Source [id number] 06/26/2020 01:44:00 PM EDT [facility] Hospital Name: RICHARD HARVEY : 1995 Age/Sex: 24M Ordering Provider: Paulo Bain DO Med Rec #: [id number] Reg Status: DEP ER Room #: Date of Service: 06/26/20 Report Number: [id number] cc:DAVIDE Devries Send Report To: [id number] XRP/XR Chest Xray Portable Reason for exam: _PAIN - CHEST Prior examination: 01-04-16. FINDINGS: There are patchy area of somewhat ground glass opacity in the midlung zones bilaterally and the possibility of an infiltrate is suggested, especially in the left. Clinical correlation and followup imaging is suggested. The heart is not enlarged. The upper spine is angled and rotated to the left. IMPRESSION: Cannot exclude bilateral mid lung infiltrates, left greater than right. Fluoroscopy time in seconds: Number of Exposures: Time Portable Image Performed: 0450 Contrast Agent in ml: Method of Administration: REPORT SIGNATURE ON FILE Reported By: Jeffrey Charlton MD <Electronically signed by Jeffrey Charlton MD> 06/27/20 1102 Dictation Date/Time: 06/26/20 0630 Transcribed Date/Time: 06/26/20 1344 Transition Lead: TEJ Name Value Range Interpretation Code Description Data Enma rce(s) Supporting Document(s) ID Date Data Source [id number] 06/26/2020 08:26:00 AM EDT [facility] Hospital Name: RICHARD HARVEY : 1995 Age/Sex: 24M Ordering Provider: Paulo Bain DO Med Rec #: [id number] Reg Status:DEP ER Room #: Date of Service: 06/26/20 Report Number: [id number] cc: DAVIDE Devries; Paulo Bain DO Send Report To: Reason for exam: CHEST PAIN;SHORTNESS OF BREATH SINUS RHYTHM POSSIBLE LEFT ATRIAL ENLARGEMENT INCOMPLETE RIGHT BUNDLE BRANCH BLOCK BORDERLINE ECG NO OLD EKG AVAILABLE FOR COMPARISON Physician Cash Management Specialist: Inocencio Valle M.D. ECG HEART RATE: 80 /min ECG RR INTERVAL: 741 ms ECG P DURATION: 115 ms ECG QRS DURATION: 100 ms ECG [place] INTERVAL: 154 ms ECG QT INTERVAL: 349 ms ECG QTC INTERVAL: 384 ms Q-T dispersion: ms ECG P AXIS: 75 deg ECG QRS AXIS: -13 deg ECG T AXIS: 59 deg REPORT SIGNATURE ON FILE 06/26/20826 Reported By: Inocencio Valle MD, [facility] <<Signature on File>> Exam Date/Time: 06/26/20 0452 Order #: [id number] Dictation Date/Time: 06/26/20825 Transcribed Date/Time: 06/26/20825 Transition Lead: JJ Name Value Range Interpretation Code Description Data Enma rce(s) Supporting Document(s) ID Date Data Source [id number] 06/24/2020 08:07:00 PM EDT [facility] Name: RICHARD HARVEY Med Rec #: [id number] : 1995 Age/Sex: 24M Date of Service: 06/24/20 DISPOSITION SUMMARY Discharge Summary [facility] Name:[facility] Emergency Department Age:24 yrs Sex:Male :1995 Arrival:06/24/2020 20:07 Departure Date06/24/2020 Departure Time23:35 Private MD:Mica Ayala PA ([place]) Outcome: Discharge Location: Home/Self Care Condition: Good Chief Complaint: Fever, Sore Throat, Headache, Vomiting Diagnosis: Fever, Lyme Disease Prescriptions: Doxycycline Hyclate 100 mg Oral Tablet - take 1 tablet by ORAL route every 12 hours for 14 days; 28 tablet Follow up: Mica Ayala PA ([place]) Custom Notes: Your preliminary Lyme test has come back positive. This will be followed up with confirmatory testing. However, given your symptoms, we will start you on treatment. You need to take the antibiotics for the full 14 days. Attending Physician: Kristie Duron MD Private MD: Mica Ayala PA ([place]) [facility] Provider: Followup Physician: Mica Ayala PA ([place]) Orders: Respiratory Panel w/COVID-19, Cbc With Auto Differential, COMMET, C-Reactive Protein,Wide Range, Blood Culture - Venous, Monospot, NS 0.9%, Ondansetron (PF), Tick Disease Ab Panel (ref), Lyme IgG/IgM Ab profile, Procalcitonin, CBC with Manual Differential, Lyme Disease Ab,Immuno,Ser Pnl, Doxycycline, Saline Lock Discharge Instruction: Discharge Summary Sheet, Lyme Disease, Work release form, Medication Reconciliation Name Value Range Interpretation Code Description Data Enma rce(s) Supporting Document(s) ID Date Data Source [id number] 06/24/2020 09:42:00 PM EDT [facility] Name Value Range Interpretation Code Description Data Enma rce(s) Supporting Document(s) Respiratory specimen severe acute respir atory syndrome coronavirus 2 (SARS-CoV-2) RNA [facility] This lab was ordered by [facility] levy and reported by [facility]. ID Date Data Source [id number] 06/29/2020 09:30:00 PM EDT [facility] Hospital Name Value Range Interpretation Code Description Data Enma rce(s) Supporting Document(s) Blood Culture-Venous [facility] ID Date Data Source [id number] 06/29/2020 09:30:00 PM EDT [facility] Name Value Range Interpretation Code Description Data Enma rce(s) Supporting Document(s) Blood Culture-Venous [facility] ID Date Data Source [id number] 06/24/2020 10:23:00 PM EDT [facility] Name Value Range Interpretation Code Description Data Enma rce(s) Supporting Document(s) Procalcitonin 0.00-0.24 Normal (applies to non-numeric re sults) [facility] 1.Risk of Progression to severe sepsis a nd septic shock: < 0.50 ng/mL Low Risk of severe sepsis and/or septic shock > 2.00 ng/mL High Risk of severe sepsis and/or septic shock 2.Decision on antibiotic discontinuation for suspected or confirmed septic patients: Antibiotic therapy may be discontinued if the current PCT is <0.50 ng/mL or if there is an 80% decrease in PCT. 3.Decision for antibiotic therapy for patients with suspected or confirmed Lower Respiratory Tract Infection (LRTI): >0.25 ng/mL - Antibiotic therapy encouraged 4.Decision on antibiotic discontinuation for patients with suspected or confirmed LRTI: Antibiotic therapy may be discontinued if the current PCT is <0.25 ng/mL or if there is an 80% decrease in PCT. NOTE: Antibiotic therapy should be considered regardless of PCT result if the patient is clinically unstable, is at high risk for adverse outcome, has strong evidence of bacterial pathogen or the clinical context indicates antibiotic therapy is warranted. ID Date Data Source [id number] 07/07/2020 07:04:00 AM EDT [facility] Name Value Range Interpretation Code Description Data Enma rce(s) Supporting Document(s) TICK Ehrlichia chaffeensis IgG <1:64 Normal (ap plies to non-numeric results) [facility] ADDITIONAL INFORMATIO N This test was developed using an analyte specific reagent. Its performance characteristics were determined by [facility] in a manner consistent with CLIA requirements. This test has not been cleared or approved by the U.S. Food and Drug Administration. TICK Anaplasma phagcytophl IgG <1:64 Normal (ap plies to non-numeric results) [facility] ADDITIONAL INFORMATIO N This test was developed using an analyte specific reagent. Its performance characteristics were determined by [facility] in a manner consistent with CLIA requirements. This test has not been cleared or approved by the U.S. Food and Drug Administration. TICK Babesia microti IgG <1:64 Normal (applies to non -numeric results) [facility] ADDITIONAL INFORMATIO N This test was developed using an analyte specific reagent. Its performance characteristics were determined by [facility] in a manner consistent with CLIA requirements. This test has not been cleared or approved by the U.S. Food and Drug Administration. TICK Lyme Disease Serology Negative Normal (applies to n on-numeric results) [facility] Not diagnostic. Supplemental testing by immunoblot has been ordered by reflex. Test Performed by: [facility] - [address] [address] Communications Advisor: Hailee Centeno M.D. Ph.D.; CLIA# [id number] TICK IgG Immunoblot Reflex Negative Normal (applies to n on-numeric results) [facility] TICK IgG Bands Reflex Normal (applies to non-nu meric results) [facility] TICK IgM Immunoblot Reflex Negative Normal (applies to n on-numeric results) [facility] TICK IgM Bands Reflex Normal (applies to non-nu meric results) [facility] TICK Dis Sero Ab,Immuno Interp Normal (applies to non-numeric results) [facility] IgM-class antibodies to B. burgdorferi ( Lyme disease) detected. Results are consistent with acute or recent infection with B. burgdorferi. Testing of a new specimen collected in 7-14 days to demonstrate IgG seroconversion may be considered to confirm infection if the diagnosis is in doubt. IgM immunoblot results should only be considered as indicative of recent infection in patients presenting within 30 days of symptom onset. Consideration of IgM immunoblot results in patients with symptoms lasting >30 days is discouraged due to the risk of false positive IgM immunoblot results and/or prolonged IgM seropositivity following disease resolution. ADDITIONAL INFORMATION Per CDC criteria, the Lyme IgG Immunoblot is interpreted as positive if IgG-class antibodies are detected to >=5 B. burgdorferi proteins, and the Lyme IgM Immunoblot is interpreted as positive if IgM-class antibodies are detected to >=2 B. burgdorferi proteins. Immunoblot patterns not meeting these criteria should not be interpreted as positive. Epitopes from certain B. burgdorferi proteins (e.g., p41) are conserved across other bacteria, which may lead to the detection of IgM- and/or IgG-class antibodies on the Lyme disease immunoblots in patients without Lyme disease. Immunoblot should only be ordered on specimens that are positive or equivocal by a FDA-licensed Lyme disease antibody screening test (e.g., EIA). Results of the Lyme IgM immunoblot should not be considered in patients with >= 30 days of symptoms. Test Performed by: [place] [address] Communications Advisor: Hailee Centeno M.D. Ph.D.; CLIA# [id number] THIS IS A STATE REPORTABLE COMMUNICABLE DISEASE. ID Date Data Source [id number] 06/28/2020 07:54:00 AM EDT [facility] Name Value Range Interpretation Code Description Data Enma rce(s) Supporting Document(s) LYWB Lyme IgG Immuno result Negative Normal (appli es to non-numeric results) [facility] LYWB Lyme IgG Bands result Normal (applies to n on-numeric results) [facility] LYWB Lyme IgM Immuno result Negative Normal (appli es to non-numeric results) [facility] NUR. OCTAVIO PLUMMER.. read back critical inf ormation 06/28/20 0754 LAB.[facility] LYWB Lyme IgM Bands result Normal (applies to n on-numeric results) [facility] LYWB Lyme Dis Ab,Immuno Interp Normal (applies to non-numeric results) [facility] IgM-class antibodies to B. burgdorferi ( Lyme disease) detected. Results are consistent with acute or recent infection with B. burgdorferi. Testing of a new specimen collected in 7-14 days to demonstrate IgG seroconversion may be considered to confirm infection if the diagnosis is in doubt. IgM immunoblot results should only be considered as indicative of recent infection in patients presenting within 30 days of symptom onset. Consideration of IgM immunoblot results in patients with symptoms lasting >30 days is discouraged due to the risk of false positive IgM immunoblot results and/or prolonged IgM seropositivity following disease resolution. ADDITIONAL INFORMATION Per CDC criteria, the Lyme IgG Immunoblot is interpreted as positive if IgG-class antibodies are detected to >=5 B. burgdorferi proteins, and the Lyme IgM Immunoblot is interpreted as positive if IgM-class antibodies are detected to >=2 B. burgdorferi proteins. Immunoblot patterns not meeting these criteria should not be interpreted as positive. Epitopes from certain B. burgdorferi proteins (e.g., p41) are conserved across other bacteria, which may lead to the detection of IgM- and/or IgG-class antibodies on the Lyme disease immunoblots in patients without Lyme disease. Immunoblot should only be ordered on specimens that are positive or equivocal by a FDA-licensed Lyme disease antibody screening test (e.g., EIA). Results of the Lyme IgM immunoblot should not be considered in patients with >= 30 days of symptoms. Test Performed by: [facility] - [address] [address] Communications Advisor: Hailee Centeno M.D. Ph.D.; CLIA# [id number] ID Date Data Source [id number] 06/25/2020 02:46:00 PM EDT [facility] Name Value Range Interpretation Code Description Data Enma rce(s) Supporting Document(s) White Blood Count 4.8-10.8 Normal (applies to non-numeri c results) [facility] Red Blood Count 4.35-6.08 Normal (applies to non-numeric results) [facility] Hemoglobin 13.0-17.5 Normal (applies to non-numeric resul ts) [facility] Hematocrit 37.7-51.0 Normal (applies to non-numeric resul ts) [facility] Mean Corpuscular Volume 80-94 Normal (applies to non- numeric results) [facility] Mean Corpuscular Hemoglobin 27.0-33.0 Normal (appli es to non-numeric results) [facility] Mean Corpuscular HGB Conc 32.0-36.0 Normal (applies to no n-numeric results) [facility] Red Cell Distribution Width 11.5-14.5 Normal (appli es to non-numeric results) [facility] Platelet Count 191 X10 3/uL 130-450 Normal (applies to non-numeric results) [facility] Mean Platelet Volume 9.6-13.1 Normal (applies to non-num alex results) [facility] Total Cells Counted 100 0-100 Normal (applies to non-nume eloise results) [facility] Neutrophils % (manual) 62 % 40-75 Normal (applies to non-n umeric results) [facility] Lymphocytes % (manual) 18 % 21-46 Below low normal [facility] Monocytes % (manual) 4 % 5-12 Below low normal [facility] Eosinophils % (manual) 1 % 1-5 Normal (applies to non-n umeric results) [facility] Basophils % (manual) 0 % 0-1 Normal (applies to non-num alex results) [facility] Promyelocytes % (manual) 1 % 0-0 Above high normal [facility] Band Neutrophils% (manual) 2 % 0-5 Normal (applies to n on-numeric results) [facility] Atypical Lymph% (manual) 12 % 0-5 Above high normal [facility] Neutrophils # (Manual) 1.5-8.1 Normal (applies to non-n umeric results) [facility] Lymphocytes # (Manual) 1.0-3.1 Normal (applies to non-n umeric results) [facility] Monocytes # (Manual) 0.2-1.3 Normal (applies to non-num alex results) [facility] Eosinophils# (Manual) 0.0-0.5 Normal (applies to non-nu meric results) [facility] Basophils # (Manual) 0.0-0.1 Normal (applies to non-num alex results) [facility] Blast# (Manual) 0.0-0.0 Above high normal [facility] Promyelocytes #(Manual) 0.0-0.0 Above high normal [facility] Platelet Estimate Adequate Normal (applies to non-numeri c results) [facility] Estimate agrees with automated count Slide Reviewed By Normal (applies to non-numeri c results) [facility] Slide has been reviewed and findings con firmed by a technologist/master technician. Slide reviewed by Pathologist for confirmation. 06/25/20 DR. ZAFAR: RARE BANDS AND RARE PROMYELOCYTE Slide referred to Pathologist for review. ID Date Data Source [id number] 06/24/2020 11:19:00 PM EDT [facility] Name Value Range Interpretation Code Description Data Enma rce(s) Supporting Document(s) Monotest Negative Normal (applies to non-numeric resul ts) [facility] ID Date Data Source [id number] 06/24/2020 11:19:00 PM EDT [facility] Name Value Range Interpretation Code Description Data Enma rce(s) Supporting Document(s) Lyme IgG Ab Negative Normal (applies to non-numeric resu lts) [facility] Lyme IgM Ab Negative [facility] Interpretation: Not diagnostic. Supplem ental testing by immunoblot has been ordered by reflex. ID Date Data Source [id number] 06/24/2020 09:23:00 PM EDT [facility] Name Value Range Interpretation Code Description Data Enma rce(s) Supporting Document(s) Sodium 139 mmol/L 137-145 Normal (applies to non-numeric resul ts) [facility] Potassium 3.5-5.1 Normal (applies to non-numeric resul ts) [facility] Chloride 106 mmol/L 98-112 Normal (applies to non-numeric resul ts) [facility] Carbon Dioxide CO2 22.0-33.0 Normal (applies to non-numer ic results) [facility] Anion Gap 4.0-11.0 Below low normal [facility] BUN 13 mg/dL 9-20 Normal (applies to non-numeric resul ts) [facility] Creatinine 0.80-1.50 Normal (applies to non-numeric resul ts) [facility] GFR >60 Normal (applies to non-numeric results) [facility] Result based on MDRD formula. Glucose Level 115 mg/dL 74-99 Above high normal [facility] The reference range is only applicable w hen fasting. Calcium-Uncorrected 8.4-10.2 Normal (applies to non-nume eloise results) [facility] Corrected Calcium 8.4-10.2 Normal (applies to non-numeri c results) [facility] Bilirubin,Total 0.2-1.3 Normal (applies to non-numeric results) [facility] SGOT(AST) 28 U/L 17-59 Normal (applies to non-numeric resul ts) [facility] SGPT(ALT) 37 U/L 21-72 Normal (applies to non-numeric resul ts) [facility] Alkaline Phosphatase 83 U/L 38-126 Normal (applies to non-num alex results) [facility] can increase Alkaline Phosp le vels up to 2 times the normal adult value. Normal values for children and adolescents are 2 to 3 times the normal adult value. Total Protein 6.3-8.2 Normal (applies to non-numeric re sults) [facility] Albumin 3.5-5.0 Below low normal [facility] ID Date Data Source [id number] 06/24/2020 09:23:00 PM EDT [facility] Name Value Range Interpretation Code Description Data Enma rce(s) Supporting Document(s) C-Reactive Protein,Wide Range <3.00 Above high normal [facility] ID Date Data Source [id number] 06/24/2020 09:41:00 PM EDT [facility] Name Value Range Interpretation Code Description Data Enma rce(s) Supporting Document(s) RP Internal Control Passed Normal (applies to non-nume eloise results) [facility] Manual entry verified by Abi Tineo 2140 Adenovirus Not Detect Normal (applies to non-numeric resul ts) [facility] Coronavirus 229E Not Detect Normal (applies to non-numeric results) [facility] Coronavirus HKU1 Not Detect Normal (applies to non-numeric results) [facility] Coronavirus NL63 Not Detect Normal (applies to non-numeric results) [facility] Coronavirus OC43 Not Detect Normal (applies to non-numeric results) [facility] SARS-CoV-2 Not Detect Normal (applies to non-numeric resul ts) [facility] Negative results do not preclude SARS-Co V-2 infection and should not be used as the sole basis for treatment or other patient management decisions. Negative results must be combined with clinical observations, patient history, and epidemiological information. Testing was performed using the [employer] real-time nested multiplexed PCR Respiratory Panel 2.1 This test has not been FDA cleared or approved. This test has been authorized by FDA under an (Emergency Use Authorization) EUA for use by authorized laboratories. This test is only authorized for the duration of the declaration that circumstances exist justifying the authorization of emergency use of in vitro diagnostic tests for detection and/or diagnosis of SARS-CoV-2. Fact sheets for this EUA assay can be found at the following links: General: https://www.cdc.gov/COVID19 Healthcare Professionals: https://www.cdc.gov/coronavirus/2019-nCoV/guidance-hcp.html THIS IS A STATE REPORTABLE COMMUNICABLE DISEASE. Human Metapneumovirus Not Detect Normal (applies to non-nu meric results) [facility] Rhino/Enterovirus Not Detect Normal (applies to non-numeri c results) [facility] Influenza A Not Detect Normal (applies to non-numeric resu lts) [facility] Influenza B Not Detect Normal (applies to non-numeric resu lts) [facility] Parainfluenza Virus 1 Not Detect Normal (applies to non-nu meric results) [facility] Parainfluenza Virus 2 Not Detect Normal (applies to non-nu meric results) [facility] Parainfluenza Virus 3 Not Detect Normal (applies to non-nu meric results) [facility] Parainfluenza Virus 4 Not Detect Normal (applies to non-nu meric results) [facility] Respiratory Syncytial Virus Not Detect Norm al (applies to non-numeric results) [facility] Bordetella Parapertussis Not Detect Normal (applies to non -numeric results) [facility] Bordetella Pertussis Not Detect Normal (applies to non-num alex results) [facility] Chlamydia Pneumoniae Not Detect Normal (applies to non-num alex results) [facility] Mycoplasma Pneumoniae Not Detect Normal (applies to non-nu meric results) [facility] Methodology: Multiplexed PCR ID Date Data Source [id number] 06/22/2020 12:05:00 PM EDT [facility] Name: RICHARD HARVEY [facility] Rec #: [id number] : 1995 Age/Sex: 24M Date of Service: 06/22/20 DISPOSITION SUMMARY Discharge Summary [facility] Name:Richard Harvey Emergency Department Age:24 yrs Sex:Male :1995 Arrival:06/22/2020 12:05 Departure Date06/22/2020 Departure Time13:16 Private MD:Britt Dunham MD Outcome: Discharge Location: Home/Self Care Condition: Good Chief Complaint: Fever, Sore Throat Diagnosis: - sore throat Prescriptions: Follow up: Britt Dunham MD Custom Notes: Attending Physician: Paulo Bain DO Private MD: Britt Dunham MD Mid Level Provider: Hailee Wilson RNP Followup Physician: Britt Dunham MD Orders: POC Strep Screen, SARS-CoV-2 RNA, POC - Collect Strep A Swab Discharge Instruction: Discharge Summary Sheet, Sore Throat, Work release form, Medication Reconciliation Name Value Range Interpretation Code Description Data Enma rce(s) Supporting Document(s) ID Date Data Source [id number] 06/22/2020 12:05:00 PM EDT [facility] Name: RICHARD HARVEY [facility] Rec #: [id number] : 1995 Age/Sex: 24M Date of Service: 06/22/20 PHYSICIAN CHART Physician Documentation [facility] Name: Richard Harvey Age: 24 yrs Sex: Male : 1995 Arrival Date: 06/22/2020 Time: 12:05 [facility] ED-1 [facility] MD: Britt Dunham L ED Physician Paulo Bain Disposition: 06/22 12:36 Attestation: Patient was seen by the [facility] rc[facility] Provider. I was personally available in the department for consultation but did not see or discuss the patient with them. HPI: 12:28 This 24 yrs old Male presents to ER via Walk-In with complaints of Fever, Sore Throat. 12:28 Patient is a 24-year-old, healthy male comes into the emergency room for evaluation of sore throat and fever. States that his sore throat started a couple of days ago. Worse when he tries to swallow. Denies cough or shortness of breath. He did develop a fever up to 101.2 last night. Vomited once last night. No diarrhea. Denies abdominal pain or chest pain. No known sick contact with SARS-CoV-2 or strep.. Historical: - Allergies: No known drug Allergies; - Home Meds: 1. None - PMHx: HIV test offered - Refused ([id number]); Lyme dx; - PSHx: knee surgery; - Med Reconciliation:: Green Alert: The patient's med list is complete to the best of the nurse's/provider's knowledge. Medications reviewed, verbally from patient/family. - Immunization history: All immunizations are up to date. - Advance directive: There is no existing advanced directive. Information offered. - Family History:: mother is healthy, Father is healthy. - Social History: Smoking status (Tobacco): Patient st abrams is a light tobacco smoker (<10 cigarettes a day). Preferred Language: Qatari. ROS: 12:29 Constitutio nal: Positive for fever. ENT: Positive for sore wn throat. Respiratory: Negative for cough, shortness of breath. Exam: 12:29 Head/Face: Normocephalic, atraumatic. wn 12:29 Cardiovascular: Regular rate and rhythm Respiratory: Easy respiratory effort, lungs are clear to auscultation Skin: Warm, dry with normal turgor. Normal color with no rashes, no lesions, and no evidence of cellulitis. Neuro: Awake and alert x 3 12:29 Constitutional: The patient appears afebrile, appears alert, appears to be awake, appears comfortable, does not appear to be toxic. 12:29 ENT: TM's: are normal, Posterior pharynx: Airway: normal, Tonsils: are normal in appearance, Uvula: midline, swelling, is not appreciated, erythema, that is mild, exudate, is not appreciated, peritonsillar mass, is not appreciated. 12:29 Neck: ROM/movement: is normal, is supple, Lymph nodes: no appreciated lymphadenopathy. Vital Signs: 12:09 Weight 78.47 kg; Height 6 ft. 3 in. (190.50 cm); sj 12:11 BP 113 / 68; Pulse 90; Resp 18; Temp 99.7(O); Pulse Ox 99% sj on R/A; 13:10 BP 118 / 75; Pulse 80; Resp 18; Pulse Ox 97% on R/A; tlf 12:09 Body Mass Index 21.62 (78.47 kg, 190.50 cm) sj MDM: 12:16 Patient medically screened. wn 12:30 Data reviewed: vital signs, nurses notes. wn 12:34 ED course: strep negative. will send RVP as outpatient and wn recommend home isolation until results return. . 06/22 12:33 Order name: POC Strep Screen dk2 06/22 12:58 Order name: SARS-CoV-2 RNA EDMS 06/22 12:28 Order name: POC - Collect Strep A Swab; Complete Time: 12:28wn Dispensed Medications: No medications were administered Disposition Summary: 06/22/20 13:02 Discharge Ordered Location: Home/Self Care wn Condition: Good wn Diagnosis - sore throat wn Followup: wn - With: Britt Dunham MD - When: 1 week - Reason: Followup: wn - With: Emergency Department - When: - Reason: Wound Recheck Discharge Instructions: - Discharge Summary Sheet wn - Sore Throat wn Forms: - Work release form wn - Medication Reconciliation wn Signatures: Dispatcher [employer] EDMS Hailee Wilson RNP MEAT TEAM LEAD wn Callie Morales RN RN Paulo Franklin DO DO rc3 Name Value Range Interpretation Code Description Data Enma rce(s) Supporting Document(s) ID Date Data Source [id number] 06/22/2020 12:05:00 PM EDT [facility] Name: RICHARD HARVEY [facility] Rec #: [id number] : 1995 Age/Sex: 24M Date of Service: 06/22/20 NURSE CHART Nurse's Notes [facility] Name: Richard Harvey Age: 24 yrs Sex: Male : 1995 Arrival Date: 06/22/2020 Time: 12:05 Bed EDRU-1 Private MD: Britt Dunham L Diagnosis: sore throat Presentation: 06/22 12:08 Transition of care: patient was not received from another setting of care. Presenting complaint: Patient states - 2 days not feeling well hot/cold last night fever 101.3 now sore throat. Have you travelled in the last 30 days? No. Have you had contact with an individual with a confirmed diagnosis of Ebola or COVID-19? No. 12:08 Method Of Arrival: Walk-In 12:08 Acuity: Semi-Urgent - 4 Triage Assessment: 12:08 Suicide Screening: Have you had thoughts of harming sj yourself or others? No. The patient appears to have no apparent distress, The patient is agitated, The patient reports that he/she has been. Patient states the pain is currently a 5 / 10 The patient complains of pain in throat. ears The patient states the pain began 2days ago. The quality of the pain is described as aching, The pain is described as continuous. Historical: - Allergies: No known drug Allergies; - Home Meds: 1. None - PMHx: HIV test offered - Refused ([id number]); Lyme dx; - PSHx: knee surgery; - Med Reconciliation:: Green Alert: The patient's med list is complete to the best of the nurse's/provider's knowledge. Medications reviewed, verbally from patient/family. - Immunization history: All immunizations are up to date. - Advance directive: There is no existing advanced directive. Information offered. - Family History:: mother is healthy, Father is healthy. - Social History: Smoking status (Tobacco): Patient states is a light tobacco smoker (<10 cigarettes a day). Preferred Language: Qatari. Screenin:11 AUDIT 1. How often do you have a drink containing alcohol? sj 4 or more times a week (4 points) 2. How many standard drinks containing alcohol do you have on a typical day when drinking? 5 or 6 (2 points). Drug Abuse Screening Test: 1. Have you used drugs other than those required for medical reasons? No (0 points), screen is complete, no risk. Abuse screen: Denies threats or abuse. Nutritional screening: No deficits noted. 12:21 Patient has no identifiable fall risk (Salazar Scale: 0 tlf points). Assessment: 12:20 Reassessment: Visual reassessment shows no worsening tlf symptoms, vital signs not warranted. See Triage Assessment. The patient complains of pain in throat. Neuro: Level of Consciousness is awake, alert, The patient reacts to verbal stimuli. EENT: Throat is clear, bilaterally. Gag reflex is intact. Respiratory: Airway is patent. Respiratory effort is even, unlabored, Breath sounds are clear bilaterally. GI: No deficits noted. 13:10 Reassessment: Visual reassessment shows no worsening tlf symptoms, vital signs not warranted. Vital Signs: 12:09 Weight 78.47 kg; Height 6 ft. 3 in. (190.50 cm); sj 12:11 BP 113 / 68; Pulse 90; Resp 18; Temp 99.7(O); Pulse Ox 99% sj on R/A; 13:10 BP 118 / 75; Pulse 80; Resp 18; Pulse Ox 97% on R/A; tlf 12:09 Body Mass Index 21.62 (78.47 kg, 190.50 cm) ED Course: 12:07 Patient arrived in ED. smc1 12:08 Britt Dunham MD is Private Physician. sj 12:08 Stella Lowe NP is PHCP. lex 12:08 Triage completed. sj 12:09 Arm band placed on right wrist. Patient has correct armband sj on for positive identification. 12:11 Hailee Wilson RNP is PHCP. wn 12:11 Paulo Bain DO is Attending Physician. wn 12:14 Mela Kumar, RN is Primary Nurse. sj 12:21 The patient was tested for Strep A by Mela Kumar RN tlf COVID- 19 specimens collected by Mela Kumar RN. 12:33 The patient was tested for Strep A by Strep A result was dk2 Negative. 13:02 Britt Dunham MD is Referral Physician. wn 13:10 Radiology: None performed. tlf 13:10 No procedures ordered. tlf Administered Medications: No medications were administered Outcome: 13:02 Discharge ordered by . wn 13:10 Reassessment: Visual reassessment shows no worsening tlf symptoms, vital signs not warranted. 13:10 Patient verbalized understanding of disposition instructions. Patient has no functional deficits. 13:10 Patient discharged to home ambulatory. 13:10 Condition: stable 13:10 Discharge instructions given to patient, Patient was instructed on discharge instructions, follow up and referral plans, quarantine until COVID 19 test comes back. The patient demonstrated understanding of instructions, No prescriptions given. 13:10 Vitals are Complete in accordance with Emergency Department Policy. 13:16 Patient left the ED. [facility] 06/23 09:09 24 hour call back completed with no concerns vocalized. dk2 Signatures: Hailee Wilson, MEAT TEAM LEAD MEAT TEAM LEAD Callie Fuller, RN RN sj Tatiana Garcia RN RN dk2 Mela Kumar RN RN tlf Stella Lowe, ANIMAL DAYCARE PROVIDER ANIMAL DAYCARE PROVIDER Amelia Avendaño Name Value Range Interpretation Code Description Data Enma rce(s) Supporting Document(s) ID Date Data Source [id number] 06/22/2020 12:37:00 PM EDT [facility] Control Line Present? YPerformed by: Philippe JMORGANStrep Screen Result: NEGATIVE Name Value Range Interpretation Code Description Data Enma rce(s) Supporting Document(s) Group A Strep ScreenNAA-POC NEGATIVE Normal (appli es to non-numeric results) [facility] Method performed by isothermal nucleic a julia amplification. Reference value: Negative for Strep A nucleic acid. Confirmatory culture is NOT required for negative results unless clinical symptoms persist, in the event of an acute rheumatic fever outbreak, or if ordered by provider. ID Date Data Source [id number] 06/24/2020 03:52:00 AM EDT [facility] COVID-19 Specimen Source NASOPHARYNGEAL Name Value Range Interpretation Code Description Data Enma rce(s) Supporting Document(s) SARS-CoV-2 RNA Undetected Normal (applies to non-numeric r esults) [facility] SARS-CoV-2 RNA absent. This result does not rule out COVID-19 in the patient, as the sensitivity of the test depends on the timing of the specimen collection and the quality of the specimen. Result should be correlated with patient's history and clinical presentation. ADDITIONAL INFORMATION This test using the ligia SARS-CoV-2 assay ([employer] performed on the ligia 6800 System has received Emergency Use Authorization (EUA) by the U.S. Food and Drug Administration, and is modified from the merit system director's instructions with a bridging study. Performance characteristics were verified by [facility] in a manner consistent with CLIA requirements. Fact sheets for this Emergency Use Authorization (EUA) assay can be found at the following links: For Healthcare Providers: https://www.fda.gov/media/930297/download For Patients: https://www.fda.gov/media/307052/download Test Performed by: [place] [address] Communications Advisor: Hailee Centeno M.D. Ph.D.; CLIA# [id number] ID Date Data Source [id number] 06/22/2020 11:15:00 AM EDT [facility] Name Value Range Interpretation Code Description Data Enma rce(s) Supporting Document(s) SARS-CoV-2 RNA Resp Ql GERMANIA+probe [facility] This lab was ordered by Inez lockett and reported by [facility] DLMP. Procedure Social History Code Duration Value Status Description Data Source(s ) Smoking 11/27/2020 12:00:00 AM EST Current Smoker completed Curre nt Smoker eCW1 ([facility]) Smoking 11/27/2020 12:00:00 AM EST Current Smoker completed Curre nt Smoker eCW1 ([facility]) Vital Signs ID Date Data Source UNK Name Value Range Interpretation Code Description Data Source(s) Diastolic blood pressure 74 mm[Hg] 74 mm[Hg] eCW1 ([facility]) Systolic blood pressure 128 mm[Hg] 128 mm[Hg] e CW1 ([facility]) Respiratory rate 18 /min 18 /min eCW1 ([facility]) Heart rate 77 /min 77 /min eCW1 ([facility]) Body mass index (BMI) [Ratio] 23.47 kg/m2 23.47 kg/m2 eCW1 ([facility]) Body height 75 [in_i] 75 [in_i] eCW1 ([facility]) Body weight 187.8 [lb_av] 187.8 [lb_av] eCW1 ([facility])
--- OUTSIDE RECORDS SUMMARY | 2021-01-05 06:25 | CCD ---
Author Author [facility] [employer] [facility] Organization [employer] Address Unknown Phone Unavailable Care Team Providers Care Software Specialist Name Role Phone Sudarshan Smith Unavailable PROBLEMS No Information ALLERGIES No Known Allergies ENCOUNTERS from 1995 to 2020-12-02 Encounter Location Date Provider Diagnosis [facility] Urology [address] [place] [address] Nov Sudarshan Smith Testicular torsion N44.00 IMMUNIZATIONS No Information SOCIAL HISTORY Tobacco Use: Social History Observation Description Date Details (start date - stop date) Current Smoker Sex Assigned At : Social History Observation Description Sex Assigned At Unknown Language: Question Answer Notes Languages spoken: Fijian Anglican: Question Answer Notes Anglican No restorationist beliefs that would impact health care. Alcohol Screening: Question Answer Notes Did you have a drink containing alcohol in the past year? Ye s Points 4 Interpretation Positive How many drinks did you have on a typica l day when you were drinking in the past year? 3 or 4 (1 point) How often did you have a drink containing alcohol in t he past year? Two to three times per week (3 points) Tobacco Use: Question Answer Notes Are you a: current smoker 5 or less daily REASON FOR REFERRAL No Information VITAL SIGNS Weight 187.8 lbs Nov, Height 75 in Nov, BMI 23.47 kg/m2 Nov, Heart Rate 77 /min Nov, Respiratory Rate 18 /min Nov, Oximetry 93 Nov, Blood pressure systolic 128 mm Hg Nov, Blood pressure diastolic 74 mm Hg Nov, MEDICATIONS Medication SIG (Take, Route, Frequency, Duration) Notes Start Da te End Date Status Albuterol Sulfate HFA 108 (90 Base) MCG/ACT 1 puff as needed Inhalation every 4 hrs Active PROCEDURES No Information RESULTS No Results REASON FOR VISIT scrotal pain MEDICAL (GENERAL) HISTORY Type Description Date Medical History gerd Medical History scrotal pain Surgical History left knee sx tear in meniscus 2017 Goals Section No Information Health Concerns No Information MEDICAL EQUIPMENT No Information MENTAL STATUS No Information FUNCTIONAL STATUS No Information ASSESSMENTS Encounter Date Diagnosis Assessment Notes Treatment Notes Treatm ent Clinical Notes Nov, Testicular torsion (ICD-10 - N44.00) Because of the intermittent left testicular pain and mukherjee clapper testicle, he will be scheduled for an orchiopexy in day surgery. The right side will also be pexed and the left testicular spermatocele cyst appears abnormal, it will also be excised, but if it is benign in appearance it will be left. PLAN OF TREATMENT Treatment Notes Assessment Notes Clinical Notes Testicular torsion Because of the inter mittent left testicular pain and mukherjee clapper testicle, he will be scheduled for an orchiopexy in day surgery. The right side will also be pexed and the left testicular spermatocele cyst appears abnormal, it will also be excised, but if it is benign in appearance it will be left. Treatment Notes Test Name Order Date CBC - Complete Blood Count 2020-12-02 Basic Metabolic Profile (BMP) 2020-12-02 Coronavirus 2019 NOSE (Send Out) COVID 2020-12-02 URINE CULTURE 2020-12-02 Next Appt Details 2 weeks after same day surgery Reason: Insurance Providers Payer Name Payer Address Payer Phone Insured Name Patient Relati onship to Insured Coverage Start Date Coverage End Date [facility] FEDERAL [address] [address] [facility] [id number] [address] self
--- OUTSIDE RECORDS SUMMARY | 2021-01-05 06:25 | CCD ---
Author Author [employer] Organization [employer] Address Unknown Phone Unavailable Care Team Providers Care Bicycle Inspector Name Role Phone Sudarshan Smith Unavailable PROBLEMS No Information ALLERGIES No Known Allergies ENCOUNTERS from 1995 to 2020-12-06 Encounter Location Date Provider Diagnosis [facility] [address] Urology [address] [place] [address] Nov Sudarshan Smith IMMUNIZATIONS No Information SOCIAL HISTORY Tobacco Use: Social History Observation Description Date Details (start date - stop date) Current Smoker Sex Assigned At : Social History Observation Description Sex Assigned At Unknown Language: Question Answer Notes Languages spoken: Bolivian Pentecostal: Question Answer Notes Pentecostal No synagogue beliefs that would impact health care. Alcohol [...] REASON FOR REFERRAL No Information VITAL SIGNS No information MEDICATIONS Medication SIG (Take, Route, Frequency, Duration) Notes Start Da te End Date Status Albuterol Sulfate HFA 108 (90 Base) MCG/ACT 1 puff as needed Inhalation every 4 hrs Active PROCEDURES No Information RESULTS No Results REASON FOR VISIT COVID MEDICAL (GENERAL) HISTORY Type Description Date Medical History gerd Medical History scrotal pain Surgical History left knee sx tear in meniscus 2017 Goals Section No Information Health Concerns No Information MEDICAL EQUIPMENT No Information MENTAL STATUS No Information FUNCTIONAL STATUS No Information ASSESSMENTS No Information PLAN OF TREATMENT Next Appt Details Provider Name:Rowena Strange, 2021-01-0 8 09:00:00 AM, [address] [place], [address], Insurance Providers Payer Name Payer Address Payer Phone Insured Name Patient Relati onship to Insured Coverage Start Date Coverage End Date [facility] FEDERAL [address] [address] [facility] [id number] [address] self
[2021-01-05] MEDS ORDERED: ceFAZolin SOD 2 GM in IV 1 EA IV ONE (07:00)
[2021-01-05] MEDS ORDERED: LR 1,000 ML IV ONE (07:00)
[2021-01-05] MEDS ORDERED: propofoL 200 MG/20 ML VIAL As Ordered ONE (07:10)
[2021-01-05] MEDS ORDERED: fentaNYL 250 MCG/5 ML INJECTION (J3010) As Ordered ONE (07:10)
[2021-01-05] MEDS ORDERED: LIDOCAINE 2% 100MG/5ML SDV (FOR ANES.) As Ordered ONE (07:10)
[2021-01-05] MEDS ORDERED: MIDAZOLAM 5MG/ML 1ML VIAL (J2250 PER 1MG) As Ordered ONE (07:10)
[2021-01-05] MEDS ORDERED: dexameTHASONE 4 MG/ML 1ML VIAL (J1100 PER 1MG) As Ordered ONE (07:10)
[2021-01-05] MEDS ORDERED: ONDANSETRON 4MG/2ML VIAL As Ordered ONE ×2 (07:10→09:00)
[2021-01-05] MEDS ORDERED: ROCURONIUM BROMIDE 50 MG/5 ML VIAL As Ordered ONE (07:37)
[2021-01-05] MEDS ORDERED: BUPIVACAINE HCL 0.25% 30ML VIAL As Ordered ONE (07:55)
[2021-01-05] MEDS ORDERED: BACITRACIN OINTMENT 30GM TUBE As Ordered ONE (08:18)
--- NOTE | 2021-01-05 08:53 | POST-OPPD ---
Postoperative Procedure Note Date Of Procedure: Jan 05, 2021 Time Of Procedure: 07:30 PREOPERATIVE DIAGNOSIS: Intermittent testicular torsion and left spermatocele POSTOPERATIVE DIAGNOSIS: Intermittent testicular torsion and left spermatocele FINDINGS: Bilateral mukherjee clapper testes PROCEDURE: Bilateral orchiopexy and left spermatocelectomy SURGEON: Sudarshan Smith M.D. DYE WEIGHER: None ANESTHESIA: Gen. SPECIMENS: Spermatocele sac ESTIMATED BLOOD LOSS: 3 mL REPLACED: None DRAINS: None COMPLICATIONS: None INDICATION FOR OPERATION: This is a 25-year-old white male with intermittent testicular torsion, bilateral mukherjee clapper testicle and a left spermatocele. He was brought into the operating room for orchiopexy bilaterally and removal of the spermatocele. POSTOPERATIVE CONDITION: Patient was placed on table in supine position and given general anesthesia. He was then prepped with Betadine paint and draped in a sterile manner and timeout was performed. An incision was then made over the left testicle to the tunica vaginalis. The testicle was brought up through the incision. The spermatocele at the epididymal head was then dissected using sharp and blunt dissection and ligated at the base with a 2-0 silk suture. The testicle was then delivered back down into the scrotal sac and pexed medially and laterally with a 3-0 Prolene suture. The incision was then closed with 3-0 chromic for the subcutaneous tissues and interrupted 3-0 chromic sutures for the skin. The right hemiscrotum was then opened with a #15 scalpel to the tunica vaginalis. The testicle was then pexed medially and laterally with a 3-0 Prolene suture. The incision was closed with 2 layers of 3-0 chromic sutures. the skin was then anesthetized with Marcaine without epinephrine. Sterile fluff dressing was then applied with bacitracin and Xeroform. The patient was then awakened and sent to recovery in stable condition having tolerated procedure well. SUDARSHAN SMITH MD Jan 05, 2021 08:53
[2021-01-05] MEDS ORDERED: METOCLOPRAMIDE INJ 10MG/2ML VIAL (J2765 PER 1) IV PRN (09:15)
[2021-01-05] MEDS ORDERED: LR 1,000 ML IV SCH (09:15)
[2021-01-05] MEDS ORDERED: PERCOCET 5MG/325MG TAB PO PRN (09:15)
[2021-01-05] MEDS ORDERED: ONDANSETRON 4MG/2ML VIAL IV PRN (09:15)
[2021-01-05] MEDS ORDERED: KETOROLAC TROMETHAMINE 10 MG TAB PO PRN (09:15)
[2021-01-05] MEDS ORDERED: fentaNYL 100 MCG/2 ML INJECTION (J3010) IV PRN (09:15)
[2021-01-05 10:20] VITALS: BP 129/80
== END 2021-01-05 10:50 | disposition home or self-care (01) ==
LOC: M SDC 06:18
PROVIDERS: ATTEND Urology
DX: N43.41 Spermatocele of epididymis, single (principal); N44.00 Torsion of testis, unspecified; N50.89 Other specified disorders of the male genital organs; F17.218 Nicotine dependence, cigarettes, with other nicotine-induced disorders
CPT/HCPCS: 54640; 54840; 88304; J0690; J1100; J2250; J2405; J2765; J3010